=== PATIENT | male | born 1965 | race African-American/Black ===

== ENCOUNTER 2024-10-03 09:21 | Observation (INO) ==
[2024-10-03] MEDS: DUONEB NEB STA (10:33)
[2024-10-03] MEDS: SOLU-MEDROL 125 MG IVP ONE (10:36)
[2024-10-03] MEDS: LEVAQUIN 500 MG/100 ML D5W 500 MG/100 ML BAG IV ONE (10:36)
[2024-10-03 10:38] LABS: BASOPHILS % (AUTO) 0.2 % (0.0-3.0); HEMATOCRIT 45.5 % (42.0-52.0); HEMOGLOBIN 14.7 g/dl (14.0-18.0); IMMATURE GRANULOCYTE % (AUTO) 0.1 % (0.0-5.0); LYMPHOCYTES # (AUTO) 1.3 K/uL (0.60-3.4); LYMPHOCYTES % (AUTO) 15.7 (10.0-50.0); MEAN CORPUSCULAR HEMOGLOBIN 29.6 pg (27.0-31.0); MEAN CORPUSCULAR HGB CONC 32.3 (31.8-35.4); MEAN CORPUSCULAR VOLUME 91.7 fl (80.0-94.0); MONOCYTES # (AUTO) 1.5 K/uL (0.4-2.0); MONOCYTES % (AUTO) 18.1 (0-10); NEUTROPHILS # (AUTO) 5.3 K/ul (2.0-6.9); NEUTROPHILS % (AUTO) 65.9 % (42.2-75.2); PLATELET COUNT 179 10^3/uL (140-440); RDW COEFFICIENT OF VARIATION 12.7 % (11.6-14.8); RED BLOOD COUNT 4.96 10^6/ul (4.70-6.10); WHITE BLOOD COUNT 8.08 K/ul (4.2-10.2)
[2024-10-03 10:45] LABS: ALANINE AMINOTRANSFERASE 17.8 U/L (0-50); ALBUMIN 3.86 g/dL (3.5-5.0); ALKALINE PHOSPHATASE 64.5 U/L (38-126); BILIRUBIN,TOTAL 1.02 mg/dL (0.2-1.3); BLOOD UREA NITROGEN 35.3 mg/dL (9-20); CALCIUM 8.16 mg/dL (8.4-10.2); CARBON DIOXIDE 35.1 mmol/L (22-30.0); CHLORIDE 84.4 mmol/L (98-107); CREATININE 1.22 mg/dL (0.60-1.10); GLUCOSE 116.9 mg/dL (74-106); POTASSIUM 3.31 mmol/L (3.5-5.1); SODIUM 126.6 mmol/L (134.5-145)
--- NOTE | 2024-10-03 10:48 | DI ---
EXAM: CHEST RADIOGRAPH TECHNIQUE: Single frontal chest radiograph. HISTORY: Shortness of breath. COMPARISON: Chest single view 09/28/2024 FINDINGS: Cardiac silhouette, mediastinal size and pulmonary vasculature are normal. The aortic arch calcified plaque and tortuous descending thoracic aorta are unchanged. Bilateral well expanded lungs are clear. No infiltrates or acute process is seen. There is no pneumothorax. IMPRESSION: No acute cardiopulmonary process. No change since the previous study.
[2024-10-03 10:57] LABS: TROPONIN I 0.033 ng/ml (0.0000-0.120)
--- NOTE | 2024-10-03 10:59 | ED.PDOC ---
General ED Provider: Dr. DEANGELO BUTSOS MD Chief Complaint: Shortness of Air Stated Complaint: 59 years old male with history of COPD coming to the emergency room for shortness of breath. Patient was seen here 5 days ago for the same problem treated with steroids and discharged home with prednisone and nebulizer treatment patient reports that his medication has not been helping and has been getting progressively worse so he came back to the emergency room. He denies any chest pain, nausea, vomiting, headache, changes in bowel or urine. Time Seen by Provider: 10/03/24 09:35 Information Source: Patient Primary Care Provider: CANDACE RENDON MD Nursing and Triage Documentation Reviewed and Agree: Yes What is Opioid Naive?: *Opioid Naive implies the patient is not already taking opioids or not chronically receiving opioids on a daily basis. *PRN dosing is not "usually" associated with tolerance. *Patients are at higher risk of over-sedation and aspiration. What is Opioid Tolerant?: *Opioid Tolerance implies less than the expected response to an opioid. *Acquired tolerance is defined by the patient taking 60mg of oral morphine daily (or equianalgesic dose of another opioid) for 1 week or more. *Often associated with chronic pain. *May take more than usual dose to achieve desired pain control. Review of Systems Review Of Systems Constitutional: Reports No symptoms All Other Systems: Reviewed and Negative [facility] Medical History Hypertension I10 - Essential (primary) hypertension (ICD-10) COPD (chronic obstructive pulmonary disease) J44.9 - Chronic obstructive pulmonary disease, unspecified (ICD-10) Family History BROTHER , Throat Cancer COPD (chronic obstructive pulmonary disease) Cancer Mother Diabetes Stroke Social History Smoking and tobacco status: Current every day smoker Tobacco type: cigarettes Smoking cigarettes per day: 2 Quit status: considering quitting Second hand smoke exposure: No Smoking risk assessment performed: No Alcohol intake: current Alcohol intake frequency: a few times a month Counseling given: No Counseling provided: none Details: 1 pint a week Substance use type: marijuana Counseling given: No Counseling provided: none Marital status: S SINGLE Lives independently: Yes Number of children: 0 service: No Current occupational status: unemployed Pets and animals: No History of recent travel: No Sexually active: Yes Do you think of yourself as: straight/heterosexual Current gender identity: male Seatbelt use: always Helmet use: No Drives intoxicated or rides with 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 Water heater temperature set < 120 degrees: Yes Working smoke detector in home: Yes Fire extinguisher in home: Yes Carbon monoxide detector in home: No Firearms in home: No Physical Exam Physical Exam Appearance: Reports Ill-appearing, No pain distress and Thin Ill-appearing: Mild Respiratory: Reports Breath sounds diminished and Wheezes (bilaterally) Cardiovascular: Reports RRR, Pulses normal, No rub, No murmur and Irregular rhythm GI/: Reports Soft, Nontender, No masses, Bowel sounds normal and No Organomegaly Musculoskeletal: Reports Normal strength, ROM intact and No edema Skin: Reports Warm and Normal color Neurological: Reports Sensation intact, Cranial nerves intact, Alert and Oriented Psychiatric: Reports Affect appropriate Course Course 10/03/24 10:29 10/03/24 10:29 Orders, Labs, Meds: Lab Review 10/03/24 10:29 WBC 8.08 RBC 4.96 Hgb 14.7 Hct 45.5 MCV 91.7 MCH 29.6 MCHC 32.3 RDW Coeff of Laura 12.7 Plt Count 179 Immature Gran % (Auto) 0.1 Neut % (Auto) 65.9 Lymph % (Auto) 15.7 [place] % (Auto) 18.1 H Eos % (Auto) 0.0 Baso % (Auto) 0.2 Neut # (Auto) 5.3 Lymph # (Auto) 1.3 [place] # (Auto) 1.5 Eos # (Auto) 0.0 Baso # (Auto) 0.0 Immature Gran # (Auto) 0.0 Sodium 126.6 L Potassium 3.31 L Chloride 84.4 L Carbon Dioxide 35.1 H Anion Gap 10.41 BUN 35.3 H Creatinine 1.22 H Estimated GFR (MDRD) 74.00 BUN/Creatinine Ratio 28.93 Glucose 116.9 H Calcium 8.16 L Total Bilirubin 1.02 AST 29.0 ALT 17.8 Alkaline Phosphatase 64.5 Troponin I 0.033 Total Protein 7.00 Albumin 3.86 Globulin 3.14 Albumin/Globulin Ratio 1.22 Orders Category Date Time Status NEBULIZER TREATMENT Stat CARDIO 10/03/24 09:37 Completed CBC W/ AUTO DIFF Stat LAB 10/03/24 10:29 Completed CMP [COMPREHENSIVE METABOLIC PANEL] Stat LAB 10/03/24 10:29 Completed TROPONIN I Stat LAB 10/03/24 10:29 Completed Ipratropium/Albuterol Neb [Duoneb] Meds 10/03/24 09:35 Discontinued 3 ml NEB ONCE STA Levofloxacin/D5w [Levaquin 500 mg/100 ml D5w] Meds 10/03/24 09:35 Discontinued 500 mg in 100 ml IV ONCE Methylprednisolone Sod Succ/Pf [Solu-Medrol 125 mg] Meds 10/03/24 09:35 Discontinued 125 mg IVP ONCE ONE Sodium Chloride 0.9% [Sodium Chloride] 1,000 ml Meds 10/03/24 10:52 Active IV BOLUS CXR [CHEST, 1V AP ONLY] Stat RADS 10/03/24 09:35 Completed Medications Generic Name Dose Route Start Last Admin Trade Name Freq PRN Reason Stop Dose Admin Sodium Chloride 1,000 mls @ 1,000 mls/hr 10/03/24 10:52 Sodium Chloride IV 10/03/24 11:51 BOLUS ONE Discontinued Medications Generic Name Dose Route Start Last Admin Trade Name Freq PRN Reason Stop Dose Admin Albuterol/Ipratropium 3 ml 10/03/24 09:35 10/03/24 10:33 Ipratropium/Albuterol Vial.Neb NEB 10/03/24 09:36 3 ml ONCE STA Administration Levofloxacin/Dextrose 500 mg in 100 mls @ 100 mls/hr 10/03/24 09:35 10/03/24 10:36 Levaquin 500 Mg/100 Ml D5w IV 10/03/24 10:34 100 mls/hr ONCE ONE Administration Methylprednisolone Sodium Succinate 125 mg 10/03/24 09:35 10/03/24 10:36 Methylprednisolone Sod Succ/Pf 125 Mg/2 Ml Vial IVP 10/03/24 09:36 125 mg ONCE ONE Administration Vital Signs: Temp Pulse Resp BP Pulse Ox O2 Flow Rate 10/03/24 10:14 95 18 115/77 98 2 10/03/24 09:36 98.4 F 99 18 112/80 89 L Patient with COPD exacerbation no signs of CHF patient is actually dehydrated. Recent ER visit discharged home with oral medication but patient failed outpatient treatment. Workup showing hyponatremia sodium 126 and some BRAD, chest x-ray negative for pneumonia as per radiology interpretation. Patient will need to be admitted under observation for further treatment I called the hospitalist on-call Sherri discussed the patient case with her and she accepted the patient to be admitted under her services. Discharge Plan Discharge Patient Disposition: PLACED OBSERVATION Discharge Problem: Acute exacerbation of chronic obstructive pulmonary disease, Acute hyponatremia Prescriptions: No Action fluticasone propion-salmeterol [Wixela Inhub] 250-50 mcg/dose blister with device 1 inh inhalation BID Qty: 60 1RF lisinopril 40 mg tablet 40 mg PO QDAY Qty: 30 5RF tiotropium bromide [Spiriva with HandiHaler] 18 mcg capsule, w/inhalation device 1 cap inhalation QDAY Qty: 60 1RF Rx Instructions: puncture 1 cap using device; one dose = 2 inhalations (STOP TRELEGY and YUPELRI NOT COVERED) metoprolol succinate 50 mg tablet extended release 24 hr 50 mg PO QDAY Qty: 30 5RF potassium chloride 20 mEq tablet extended release 20 meq PO BIDWM2 Qty: 60 0RF albuterol sulfate 90 mcg/actuation HFA aerosol inhaler 2 puff inhalation Q6H PRN (Reason: shortness of breath or wheezing) Qty: 6.7 0RF albuterol sulfate 2.5 mg /3 mL (0.083 %) solution for nebulization 2.5 mg inhalation Q4-6H PRN (Reason: shortness of breath or wheezing) Qty: 90 0RF (DME) nebulizer and compressor Device See Rx Instructions .ROUTE Qty: 1 0RF Rx Instructions: As directed (DME) Aerochamber MV Spacer See Rx Instructions .ROUTE Qty: 10 0RF Rx Instructions: As directed prednisone 50 mg tablet 50 mg PO DAILY Qty: 7 0RF amlodipine 10 mg tablet 10 mg PO DAILY Qty: 30 0RF lisinopril-hydrochlorothiazide [Zestoretic] 20-25 mg tablet 1 tab PO DAILY Qty: 30 0RF amlodipine 10 mg tablet 10 mg PO QDAY Qty: 30 1RF Rx Instructions: Dose increase from 5mg daily to 10mg daily 07/25/23. spironolactone 25 mg tablet 25 mg PO QDAY Qty: 30 1RF Did you review [place] [employer] OPERATOR for ALL controlled substances?: Not Applicable ED Provider: DEANGELO BUSTOS Condition: Stable
[2024-10-03 11:40] LABS: SARS COV-2 RNA RAPID NAAT NEGATIVE (NEGATIVE)
[2024-10-03] MEDS: SODIUM CHLORIDE 1,000 ML IV ONE (12:24)
[2024-10-03 12:56] VITALS: BMI 21.4
[2024-10-03] MEDS ORDERED: TYLENOL PO PRN (13:16)
--- NOTE | 2024-10-03 15:09 | PCM ---
Date of Service Date Seen by Provider: 10/03/24 Time Seen by Provider: 14:00 Admit Day/Time Admission Date: 10/03/24 Admission Time: 13:33 Reason for Admission Chief Complaint: COPD EXACERBATION Hospital Provider Hospital Provider: IDA CRABTREE [place]-C[place] [facility] [place] Primary Care Physician: CANDACE RENDON MD History of Present Illness History of Present Illness: Patient is a 59 year old male who presents to ER with worsening COPD symptoms. Patient was seen in the ER recently and prescribed steroids. He states he's been taking them without relief. He continues to have cough and sob, worse with exertion. He quit smoking 3 weeks ago due to worsening symptoms as well. In ER he was noted to be 88-89% on RA. He was placed on 2L and while trying to wean him back down he desaturated to 89% again. He was given solumedrol and levaquin. Will admit to med surg. Patient has been living with his niece lately. Niece is interested in penitentiary placement. The patient is agreeable. Case Discussed With Case Discussed With: Patient's case was discussed with the ER Physicians, Dr. Esqueda. [facility] Medical History Arthritis M19.90 - Unspecified osteoarthritis, unspecified site (ICD-10) Hypertension I10 - Essential (primary) hypertension (ICD-10) COPD (chronic obstructive pulmonary disease) J44.9 - Chronic obstructive pulmonary disease, unspecified (ICD-10) Family History BROTHER , Throat Cancer COPD (chronic obstructive pulmonary disease) Cancer Mother Diabetes Stroke Social History Smoking and tobacco status: Former smoker Quit status: quit date established Second hand smoke exposure: No Smoking risk assessment performed: No Alcohol intake: current Alcohol intake frequency: a few times a month Counseling given: No Counseling provided: none Details: 1 pint a week Substance use type: marijuana Counseling given: No Counseling provided: none Marital status: S SINGLE Lives independently: Yes Number of children: 0 service: No Current occupational status: unemployed Pets and animals: No History of recent travel: No Sexually active: Yes Do you think of yourself as: straight/heterosexual Current gender identity: male Seatbelt use: always Helmet use: No Drives intoxicated or rides with 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 Water heater temperature set < 120 degrees: Yes Working smoke detector in home: Yes Fire extinguisher in home: Yes Carbon monoxide detector in home: No Firearms in home: No Allergies Allergies Allergy/AdvReac Type Severity Reaction Status Date / Time No Known Allergies Allergy Verified 08/01/23 15:51 Current Medications Home Medications Acetaminophen (Acetaminophen 325 Mg Tablet) 650 mg PO Q4H PRN PRN Reason: Mild Pain Albuterol/Ipratropium (Ipratropium/Albuterol Vial.Neb) 3 ml NEB RTQ6H MICHAEL Amlodipine Besylate (Amlodipine Besylate 5 Mg Tablet) 10 mg PO DAILY MICHAEL Levofloxacin/Dextrose (Levaquin 750 Mg/150 Ml D5w) 750 mg in 150 mls @ 100 mls/hr IV DAILY MICHAEL Stop: 10/07/24 08:59 Sodium Chloride (Sodium Chloride) 1,000 mls @ 75 mls/hr IV .[id number] MICHAEL Methylprednisolone Sodium Succinate (Methylprednisolone Sod Succ/Pf 40 Mg/Ml Vial) 40 mg IVP Q8HR MICHAEL Non-Formulary Medication (Fluticasone Propion-Salmeterol [Wixela Inhub]) 1 inh IH BID MICHAEL Potassium Chloride (Potassium Chloride 20 Meq Tab) 40 meq PO ONCE ONE Stop: 10/03/24 15:01 fluticasone 250 mcg-salmeterol 50 mcg/dose blistr powdr for inhalation (Wixela Inhub) 1 inh inhalation BID #60 ea 06/14/23 [Rx Confirmed 10/03/24] lisinopril 40 mg tablet 40 mg PO QDAY #30 tabs 06/16/23 [Rx Confirmed 10/03/24] amlodipine 10 mg tablet 10 mg PO QDAY #30 tabs 07/25/23 [Rx Confirmed 10/03/24] spironolactone 25 mg tablet 25 mg PO QDAY #30 tabs 07/25/23 [Rx Confirmed ] tiotropium bromide 18 mcg capsule with inhalation device (Spiriva with HandiHaler) 1 cap inhalation QDAY #60 inhalations 09/01/23 [Rx Confirmed 10/03/24] metoprolol succinate 50 mg tablet,extended release 24 hr 50 mg PO QDAY #30 tabs 09/13/23 [Rx Confirmed 10/03/24] albuterol sulfate 90 mcg/actuation aerosol inhaler 2 puff inhalation Q6H PRN shortness of breath or wheezing #6.7 grams 10/23/23 [Rx Confirmed 10/03/24] potassium chloride 20 mEq tablet,extended release 20 meq PO BIDWM2 #60 tabs 10/23/23 [Rx Confirmed 10/03/24] albuterol sulfate 2.5 mg/3 mL (0.083 %) solution for nebulization 2.5 mg (3 mL) inhalation Q4-6H PRN shortness of breath or wheezing #90 mL 09/28/24 [Rx Confirmed 10/03/24] amlodipine 10 mg tablet 10 mg PO DAILY #30 tabs 09/28/24 [Rx Confirmed 10/03/24] inhalational spacing device (Aerochamber MV spacer) #10 ea 09/28/24 [Rx Confirmed 10/03/24] lisinopril 20 mg-hydrochlorothiazide 25 mg tablet (Zestoretic) 1 tab PO DAILY #30 tabs 09/28/24 [Rx Confirmed 10/03/24] nebulizer and compressor #1 ea 09/28/24 [Rx Confirmed 10/03/24] prednisone 50 mg tablet 50 mg PO DAILY #7 tabs 09/28/24 [Rx Confirmed 10/03/24] Opioid Naive vs. Tolerant Does Patient Take Opioids?: No Is Patient Opioid Naive?: Yes What is Opioid Naive?: *Opioid Naive implies the patient is not already taking opioids or not chronically receiving opioids on a daily basis. *PRN dosing is not "usually" associated with tolerance. *Patients are at higher risk of over-sedation and aspiration. Is Patient Opioid Tolerant?: No What is Opioid Tolerant?: *Opioid Tolerance implies less than the expected response to an opioid. *Acquired tolerance is defined by the patient taking 60mg of oral morphine daily (or equianalgesic dose of another opioid) for 1 week or more. *Often associated with chronic pain. *May take more than usual dose to achieve desired pain control. Review of Systems Constitutional: Reports Fatigue; Denies Fever Head: Reports Normocephalic and Atraumatic Throat: Reports Sore Throat Cardiovascular: Denies Chest pain, Chest Pressure or Edema Respiratory: Reports Cough and Shortness of air Gastrointestinal: Denies Nausea, Vomiting, Diarrhea, Abdominal pain or Melena Genitourinary: Denies Dysuria or Hematuria Dermatologic: Denies Rashes Neurological: Denies Headache, Dizziness or Syncope Physical examination Most Recent Vital Signs: Most Recent Vital Signs Temperature 98.7 F 10/03/24 12:42 Temperature Source Temporal Artery Scan 10/03/24 12:42 Temperature Source Infrared 10/03/24 09:36 Pulse Rate 92 10/03/24 12:42 Respiratory Rate 22 H 10/03/24 12:42 Blood Pressure 115/77 10/03/24 10:14 Blood Pressure Right Arm 108/82 10/03/24 12:42 Blood Pressure Position Supine 10/03/24 12:42 O2 Sat by Pulse Oximetry 97 10/03/24 12:42 Oxygen Delivery Method Nasal Cannula 10/03/24 14:00 Oxygen Flow Rate 2 10/03/24 12:42 Height 5 ft 7 in 10/03/24 12:42 Weight 62.2 kg 10/03/24 12:42 Appearance: Positive No Apparent Distress and Alert and Oriented x3 Skin: Negative Rashes HEENT: Positive Normocephalic; Negative Oral Mucous Moist Neck: Positive Supple and Midline Trachea Chest/Lungs: Positive Clear to Auscultation Bilaterally and Wheezes (insp wheezing dagoberto all hernandez, on 2L ); Negative Rales or Rhonci Heart: Positive RRR GI/: Positive Soft, Nontender, Bowel Sounds Normal and No Distention Extremities: Negative Edema Neurological: Positive Cranial Nerves Intact, Alert, Oriented and Muscle Strength 5/5 in Upper and Lower Extremities Bilaterally Psychiatric: Positive Oriented x4, Appropriate Mood, Appropriate Affect and Intact Memory Labs This Visit Labs This Visit: Labs This Visit 10/03/24 10/03/24 10:29 11:20 WBC 8.08 RBC 4.96 Hgb 14.7 Hct 45.5 MCV 91.7 MCH 29.6 MCHC 32.3 RDW Coeff of Laura 12.7 Plt Count 179 Immature Gran % (Auto) 0.1 Neut % (Auto) 65.9 Lymph % (Auto) 15.7 [place] % (Auto) 18.1 H Eos % (Auto) 0.0 Baso % (Auto) 0.2 Neut # (Auto) 5.3 Lymph # (Auto) 1.3 [place] # (Auto) 1.5 Eos # (Auto) 0.0 Baso # (Auto) 0.0 Immature Gran # (Auto) 0.0 Sodium 126.6 L Potassium 3.31 L Chloride 84.4 L Carbon Dioxide 35.1 H Anion Gap 10.41 BUN 35.3 H Creatinine 1.22 H Estimated GFR (MDRD) 74.00 BUN/Creatinine Ratio 28.93 Glucose 116.9 H Calcium 8.16 L Total Bilirubin 1.02 AST 29.0 ALT 17.8 Alkaline Phosphatase 64.5 Troponin I 0.033 Total Protein 7.00 Albumin 3.86 Globulin 3.14 Albumin/Globulin Ratio 1.22 SARS CoV-2 RNA Rapid CELENA Negative Imaging Imaging: EXAM: CHEST RADIOGRAPH TECHNIQUE: Single frontal chest radiograph. HISTORY: Shortness of breath. COMPARISON: Chest single view 09/28/2024 FINDINGS: Cardiac silhouette, mediastinal size and pulmonary vasculature are normal. The aortic arch calcified plaque and tortuous descending thoracic aorta are unchanged. Bilateral well expanded lungs are clear. No infiltrates or acute process is seen. There is no pneumothorax. IMPRESSION: No acute cardiopulmonary process. No change since the previous study. Review Statement Review Statement: I have independently reviewed and interpreted the labs/EKGs/imaging that were ordered by the ER provider. I have reviewed all outside records that are available currently in our EMR including imaging/notes/labs from previous visits. Plan Plan: 1. Acute hypoxic respiratory failure in setting of COPD exacerbation - abx, steroids, duonebs, wean O2 when able 2. Acute COPD exacerbation - plan as above 3. Hyponatremia, acute - NS ordered, received bolus in ER. Pt appears dry on exam. 4. BRAD, stage I - Fluids ordered. 5. Hypertension - Cont home meds. DVT Prophylaxis: Ambulation Time Spent: Greater than 80 minutes spent with patient, 50% of the time spent with this patient was devoted to counseling and coordination of care. [facility] minutes spent discussing advance care planning. Admit to: Obs Discussed Plan of Care with Dr. Nickolas Leon. Case management working on placement. Medications Medication Orders: Medications Ordered Category Date Time Status Acetaminophen [Tylenol] Meds 10/03/24 13:16 Active 650 mg PO Q4H PRN Amlodipine Besylate [Norvasc] Meds 10/04/24 09:00 Ordered 10 mg PO DAILY Ipratropium/Albuterol Neb [Duoneb] Meds 10/03/24 18:00 Active 3 ml NEB RTQ6H Levofloxacin/D5w [Levaquin 750 mg/150 ml D5w] Meds 10/04/24 09:00 Active 750 mg in 150 ml IV DAILY Methylprednisolone Sod Succ/Pf [Solu-Medrol 40 mg] Meds 10/03/24 21:00 Active 40 mg IVP Q8HR Potassium Chloride [K-Dur] Meds 10/03/24 15:00 Once 40 meq PO ONCE ONE Sodium Chloride 0.9% [Sodium Chloride] 1,000 ml Meds 10/03/24 15:00 Ordered IV 75 mls/hr fluticasone propion-salmeterol [Wixela Inhub] Meds 10/03/24 21:00 Ordered 1 inh IH BID
[2024-10-03] MEDS: SODIUM CHLORIDE 1,000 ML IV SCH (16:12)
[2024-10-03] MEDS: K-DUR PO ONE (16:12)
[2024-10-03] MEDS: DUONEB NEB SCH (17:55)
[2024-10-03] MEDS: SYMBICORT 160-4.5 MCG INHALER IH SCH (20:29)
[2024-10-03] MEDS: SOLU-MEDROL 40 MG IVP SCH (20:30)
[2024-10-04 05:47] LABS: BASOPHILS % (AUTO) 0.1 % (0.0-3.0); EOSINOPHILS # (AUTO) 0.1 K/ul (0.0-0.7); EOSINOPHILS % (AUTO) 1.1 % (0.0-7.0); HEMATOCRIT 42.1 % (42.0-52.0); HEMOGLOBIN 13.4 g/dl (14.0-18.0); IMMATURE GRANULOCYTE % (AUTO) 0.3 % (0.0-5.0); LYMPHOCYTES # (AUTO) 0.8 K/uL (0.60-3.4); LYMPHOCYTES % (AUTO) 10.9 (10.0-50.0); MEAN CORPUSCULAR HEMOGLOBIN 28.6 pg (27.0-31.0); MEAN CORPUSCULAR HGB CONC 31.8 (31.8-35.4); MONOCYTES # (AUTO) 0.7 K/uL (0.4-2.0); MONOCYTES % (AUTO) 9.5 (0-10); NEUTROPHILS # (AUTO) 5.7 K/ul (2.0-6.9); NEUTROPHILS % (AUTO) 78.1 % (42.2-75.2); PLATELET COUNT 193 10^3/uL (140-440); RDW COEFFICIENT OF VARIATION 12.5 % (11.6-14.8); RED BLOOD COUNT 4.68 10^6/ul (4.70-6.10); WHITE BLOOD COUNT 7.27 K/ul (4.2-10.2)
[2024-10-04 06:02] LABS: ALANINE AMINOTRANSFERASE 17.4 U/L (0-50); ALBUMIN 3.59 g/dL (3.5-5.0); ALKALINE PHOSPHATASE 57.5 U/L (38-126); ASPARTATE AMINO TRANSFERASE 27.6 U/L (17-59); BILIRUBIN,TOTAL 0.51 mg/dL (0.2-1.3); BLOOD UREA NITROGEN 26.4 mg/dL (9-20); CALCIUM 8.12 mg/dL (8.4-10.2); CARBON DIOXIDE 31.7 mmol/L (22-30.0); CHLORIDE 91.4 mmol/L (98-107); CREATININE 1.02 mg/dL (0.60-1.10); GLUCOSE 195.1 mg/dL (74-106); POTASSIUM 3.34 mmol/L (3.5-5.1); SODIUM 129.1 mmol/L (134.5-145); TOTAL PROTEIN 6.6 g/dL (6.3-8.2)
[2024-10-04] MEDS: NORVASC PO SCH (09:39)
[2024-10-04] MEDS: LEVAQUIN 750 MG/150 ML D5W 750 MG/150 ML BAG IV SCH (09:41)
[2024-10-04] MEDS: K-DUR PO ONE (10:43)
--- NOTE | 2024-10-04 12:41 | PCM.PROG ---
Date/Time Seen Date Seen by Provider: 10/04/24 Time Seen by Provider: 09:00 Provider Provider: ANGELA BURK, [facility] Chief Complaint Chief Complaint: COPD EXACERBATION Subjective Subjective: Feeling better today. Still requiring 2L of oxygen this am. Audible wheezing still at this time. Objective Appearance: Positive No Apparent Distress and Alert and Oriented x3 Chest/Lungs: Positive Symmetrical With Equal Breath Sounds and Wheezes (diminished) Heart: Positive RRR and Pulses Normal GI/: Positive Soft, Nontender, Bowel Sounds Normal and No Distention Musculoskeletal: Positive Not Examined Neurological: Positive Sensation Intact, Motor intact, Alert and Oriented Vital Signs Vital Signs: Vital Signs: Last 24 Hours 10/03/24 12:42 10/03/24 12:42 10/03/24 13:00 Temperature 98.7 F Temperature Source Temporal Artery Scan Pulse Rate 92 Respiratory Rate 22 H 22 H Blood Pressure Blood Pressure Mean Blood Pressure Right Arm 108/82 Blood Pressure Location Blood Pressure Position Supine O2 Sat by Pulse Oximetry 97 Oxygen Delivery Method Nasal Cannula Nasal Cannula Nasal Cannula Oxygen Flow Rate 2 2 Height 5 ft 7 in Weight 62.2 kg Telemetry Type Telemetry Monitoring Telemetry Heart Rate Telemetry SPO2 EKG NV Interval EKG QRS Interval Telemetry Strip Reading 10/03/24 14:00 10/03/24 14:00 10/03/24 14:00 Temperature 99.1 F Temperature Source Temporal Artery Scan Pulse Rate 92 Respiratory Rate 18 Blood Pressure 108/70 Blood Pressure Mean 82 Blood Pressure Right Arm Blood Pressure Location Right Arm Blood Pressure Position O2 Sat by Pulse Oximetry 96 Oxygen Delivery Method Nasal Cannula Nasal Cannula Nasal Cannula Oxygen Flow Rate 2 2 Height Weight Telemetry Type Telemetry Monitoring Telemetry Heart Rate Telemetry SPO2 EKG NV Interval EKG QRS Interval Telemetry Strip Reading 10/03/24 15:00 10/03/24 15:03 10/03/24 16:00 Temperature Temperature Source Pulse Rate Respiratory Rate Blood Pressure Blood Pressure Mean Blood Pressure Right Arm Blood Pressure Location Blood Pressure Position O2 Sat by Pulse Oximetry Oxygen Delivery Method Nasal Cannula Nasal Cannula Oxygen Flow Rate Height Weight Telemetry Type Remote Telemetry Telemetry Monitoring Started Telemetry Heart Rate 92 Telemetry SPO2 EKG NV Interval 0.14 EKG QRS Interval 0.07 Telemetry Strip Reading SR 10/03/24 16:49 10/03/24 17:46 10/03/24 17:55 Temperature 97.9 F Temperature Source Temporal Artery Scan Pulse Rate 83 Respiratory Rate 20 Blood Pressure 116/63 Blood Pressure Mean 80 Blood Pressure Right Arm Blood Pressure Location Right Arm Blood Pressure Position Supine O2 Sat by Pulse Oximetry 98 Oxygen Delivery Method Nasal Cannula Nasal Cannula Nasal Cannula Oxygen Flow Rate 2 Height Weight Telemetry Type Telemetry Monitoring Telemetry Heart Rate Telemetry SPO2 EKG NV Interval EKG QRS Interval Telemetry Strip Reading 10/03/24 19:00 10/03/24 19:00 10/03/24 19:15 Temperature Temperature Source Pulse Rate Respiratory Rate 20 Blood Pressure Blood Pressure Mean Blood Pressure Right Arm Blood Pressure Location Blood Pressure Position O2 Sat by Pulse Oximetry Oxygen Delivery Method Nasal Cannula Nasal Cannula Oxygen Flow Rate 2 Height Weight Telemetry Type Remote Telemetry Telemetry Monitoring Continues Telemetry Heart Rate 83 Telemetry SPO2 99 EKG NV Interval 0.20 EKG QRS Interval 0.06 Telemetry Strip Reading sinus rhythm 10/03/24 19:58 10/03/24 20:00 10/03/24 20:54 Temperature 98.7 F Temperature Source Temporal Artery Scan Pulse Rate 80 Respiratory Rate 19 Blood Pressure 126/82 Blood Pressure Mean 96 Blood Pressure Right Arm Blood Pressure Location Left Arm Blood Pressure Position Supine O2 Sat by Pulse Oximetry 95 97 Oxygen Delivery Method Nasal Cannula Nasal Cannula Nasal Cannula Oxygen Flow Rate 2 2 Height Weight Telemetry Type Telemetry Monitoring Telemetry Heart Rate Telemetry SPO2 EKG NV Interval EKG QRS Interval Telemetry Strip Reading 10/03/24 21:00 10/03/24 21:38 10/03/24 23:00 Temperature Temperature Source Pulse Rate Respiratory Rate Blood Pressure Blood Pressure Mean Blood Pressure Right Arm Blood Pressure Location Blood Pressure Position O2 Sat by Pulse Oximetry Oxygen Delivery Method Nasal Cannula Nasal Cannula Nasal Cannula Oxygen Flow Rate Height Weight Telemetry Type Telemetry Monitoring Telemetry Heart Rate Telemetry SPO2 EKG NV Interval EKG QRS Interval Telemetry Strip Reading 10/03/24 23:56 10/04/24 00:27 10/04/24 01:00 Temperature Temperature Source Pulse Rate Respiratory Rate Blood Pressure Blood Pressure Mean Blood Pressure Right Arm Blood Pressure Location Blood Pressure Position O2 Sat by Pulse Oximetry Oxygen Delivery Method Nasal Cannula Nasal Cannula Oxygen Flow Rate Height Weight Telemetry Type Remote Telemetry Telemetry Monitoring Continues Telemetry Heart Rate 74 Telemetry SPO2 95 EKG NV Interval 0.17 EKG QRS Interval 0.07 Telemetry Strip Reading sinus rhythm 10/04/24 01:59 10/04/24 02:00 10/04/24 03:00 Temperature 98.9 F Temperature Source Temporal Artery Scan Pulse Rate 75 Respiratory Rate 18 Blood Pressure 121/81 Blood Pressure Mean 94 Blood Pressure Right Arm Blood Pressure Location Left Arm Blood Pressure Position Supine O2 Sat by Pulse Oximetry 97 Oxygen Delivery Method Nasal Cannula Nasal Cannula Nasal Cannula Oxygen Flow Rate 2 Height Weight Telemetry Type Telemetry Monitoring Telemetry Heart Rate Telemetry SPO2 EKG NV Interval EKG QRS Interval Telemetry Strip Reading 10/04/24 04:00 10/04/24 05:00 10/04/24 05:04 Temperature 97.7 F Temperature Source Temporal Artery Scan Pulse Rate 71 Respiratory Rate 17 Blood Pressure 123/71 Blood Pressure Mean 88 Blood Pressure Right Arm Blood Pressure Location Right Arm Blood Pressure Position Supine O2 Sat by Pulse Oximetry 95 Oxygen Delivery Method Nasal Cannula Nasal Cannula Nasal Cannula Oxygen Flow Rate 2 Height Weight Telemetry Type Telemetry Monitoring Telemetry Heart Rate Telemetry SPO2 EKG NV Interval EKG QRS Interval Telemetry Strip Reading 10/04/24 05:05 10/04/24 06:00 10/04/24 07:00 Temperature Temperature Source Pulse Rate Respiratory Rate Blood Pressure Blood Pressure Mean Blood Pressure Right Arm Blood Pressure Location Blood Pressure Position O2 Sat by Pulse Oximetry Oxygen Delivery Method Nasal Cannula Nasal Cannula Nasal Cannula Oxygen Flow Rate 2 Height Weight Telemetry Type Telemetry Monitoring Telemetry Heart Rate Telemetry SPO2 EKG NV Interval EKG QRS Interval Telemetry Strip Reading 10/04/24 07:00 10/04/24 08:00 10/04/24 08:00 Temperature Temperature Source Pulse Rate Respiratory Rate 22 H Blood Pressure Blood Pressure Mean Blood Pressure Right Arm Blood Pressure Location Blood Pressure Position O2 Sat by Pulse Oximetry Oxygen Delivery Method Nasal Cannula Nasal Cannula Oxygen Flow Rate 2 Height Weight Telemetry Type Remote Telemetry Telemetry Monitoring Continues Telemetry Heart Rate 87 Telemetry SPO2 93 EKG NV Interval 0.18 EKG QRS Interval 0.09 Telemetry Strip Reading NSR 10/04/24 09:00 10/04/24 10:00 10/04/24 10:00 Temperature 98.0 F Temperature Source Temporal Artery Scan Pulse Rate 72 Respiratory Rate 16 Blood Pressure 144/86 H Blood Pressure Mean 105 Blood Pressure Right Arm Blood Pressure Location Right Arm Blood Pressure Position Supine O2 Sat by Pulse Oximetry 97 Oxygen Delivery Method Nasal Cannula Nasal Cannula Nasal Cannula Oxygen Flow Rate 1 Height Weight Telemetry Type Telemetry Monitoring Telemetry Heart Rate Telemetry SPO2 EKG NV Interval EKG QRS Interval Telemetry Strip Reading 10/04/24 10:00 10/04/24 11:00 10/04/24 11:10 Temperature Temperature Source Pulse Rate Respiratory Rate Blood Pressure Blood Pressure Mean Blood Pressure Right Arm Blood Pressure Location Blood Pressure Position O2 Sat by Pulse Oximetry 98 93 L Oxygen Delivery Method Nasal Cannula Nasal Cannula Room Air Oxygen Flow Rate 1 Height Weight Telemetry Type Telemetry Monitoring Telemetry Heart Rate Telemetry SPO2 EKG NV Interval EKG QRS Interval Telemetry Strip Reading 10/04/24 12:00 Temperature Temperature Source Pulse Rate Respiratory Rate Blood Pressure Blood Pressure Mean Blood Pressure Right Arm Blood Pressure Location Blood Pressure Position O2 Sat by Pulse Oximetry Oxygen Delivery Method Room Air Oxygen Flow Rate Height Weight Telemetry Type Telemetry Monitoring Telemetry Heart Rate Telemetry SPO2 EKG NV Interval EKG QRS Interval Telemetry Strip Reading Lab Results Lab Results: Lab Results: Last 24 Hours 10/04/24 05:25 WBC 7.27 RBC 4.68 L Hgb 13.4 L Hct 42.1 MCV 90.0 MCH 28.6 MCHC 31.8 RDW Coeff of Laura 12.5 Plt Count 193 Immature Gran % (Auto) 0.3 Neut % (Auto) 78.1 H Lymph % (Auto) 10.9 [place] % (Auto) 9.5 Eos % (Auto) 1.1 Baso % (Auto) 0.1 Neut # (Auto) 5.7 Lymph # (Auto) 0.8 [place] # (Auto) 0.7 Eos # (Auto) 0.1 Baso # (Auto) 0.0 Immature Gran # (Auto) 0.0 Sodium 129.1 L Potassium 3.34 L Chloride 91.4 L Carbon Dioxide 31.7 H Anion Gap 9.34 BUN 26.4 H Creatinine 1.02 Estimated GFR (MDRD) 91.00 BUN/Creatinine Ratio 25.88 Glucose 195.1 H D Calcium 8.12 L Total Bilirubin 0.51 AST 27.6 ALT 17.4 Alkaline Phosphatase 57.5 Total Protein 6.60 Albumin 3.59 Globulin 3.01 Albumin/Globulin Ratio 1.19 Additional Comments Additional Comments: I have independently reviewed and interpreted the labs/EKGs/imaging ordered during this hospital stay. I have reviewed outside records that are available in our EMR that pertain to medical stay including imaging/notes/labs from previous visits. Active Medications Active Medications: Medications Generic Name Dose Route Start Last Admin Trade Name Tank PRN Reason Stop Dose Admin Acetaminophen 650 mg 10/03/24 13:16 Acetaminophen 325 Mg Tablet PO Q4H PRN Mild Pain Albuterol/Ipratropium 3 ml 10/03/24 18:00 10/04/24 11:09 Ipratropium/Albuterol Vial.Neb NEB 3 ml RTQ6H MICHAEL Administration Amlodipine Besylate 10 mg 10/04/24 09:00 10/04/24 09:39 Amlodipine Besylate 5 Mg Tablet PO 10 mg DAILY MICHAEL Administration Budesonide/Formoterol Fumarate 2 puff 10/03/24 21:00 10/04/24 09:38 Budesonide/Formoterol Fumarate 160/4.5 Mcg Inhaler IH 2 puff BID MICHAEL Administration Levofloxacin/Dextrose 750 mg in 150 mls @ 100 mls/hr 10/04/24 09:00 10/04/24 09:41 Levaquin 750 Mg/150 Ml D5w IV 10/07/24 08:59 100 mls/hr DAILY MICHAEL Administration Sodium Chloride 1,000 mls @ 75 mls/hr 10/03/24 15:00 10/04/24 04:42 Sodium Chloride IV 75 mls/hr .[id number] MICHAEL Administration Methylprednisolone Sodium Succinate 40 mg 10/03/24 21:00 10/04/24 04:44 Methylprednisolone Sod Succ/Pf 40 Mg/Ml Vial IVP 40 mg Q8HR MICHAEL Administration Plan Plan: 1. Acute hypoxic respiratory failure in setting of COPD exacerbation - abx, steroids, duonebs, wean O2 when able 2. Acute COPD exacerbation - plan as above 3. Hyponatremia, acute - NS ordered, received bolus in ER. Pt appears dry on exam. 4. BRAD, stage I - Improving, Fluids ordered. 5. Hypertension - Cont home meds. DVT Prophylaxis: Ambulation Review Statement Review Statement: I have personally discussed and reviewed the patient's visit/currently l abs/imaging/decision making with Dr. Leon, my supervising attending. Greater that 50 minutes spent with patient, 50% of the time spent with this patient was devoted to counseling and coordination of care.
[2024-10-04] MEDS: CHLORASEPTIC SPRAY MM PRN (17:04)
[2024-10-05 05:46] LABS: BASOPHILS % (AUTO) 0.1 % (0.0-3.0); EOSINOPHILS % (AUTO) 0.4 % (0.0-7.0); HEMATOCRIT 41.9 % (42.0-52.0); IMMATURE GRANULOCYTE # (AUTO) 0.1 (0.0-1.0); IMMATURE GRANULOCYTE % (AUTO) 0.4 % (0.0-5.0); LYMPHOCYTES # (AUTO) 0.9 K/uL (0.60-3.4); LYMPHOCYTES % (AUTO) 7.8 (10.0-50.0); MEAN CORPUSCULAR HEMOGLOBIN 28.7 pg (27.0-31.0); MEAN CORPUSCULAR VOLUME 92.5 fl (80.0-94.0); MONOCYTES # (AUTO) 1.2 K/uL (0.4-2.0); MONOCYTES % (AUTO) 10.7 (0-10); NEUTROPHILS % (AUTO) 80.6 % (42.2-75.2); PLATELET COUNT 200 10^3/uL (140-440); RDW COEFFICIENT OF VARIATION 12.8 % (11.6-14.8); RED BLOOD COUNT 4.53 10^6/ul (4.70-6.10); WHITE BLOOD COUNT 11.15 K/ul (4.2-10.2)
[2024-10-05 06:01] LABS: ALANINE AMINOTRANSFERASE 17.9 U/L (0-50); ALBUMIN 3.73 g/dL (3.5-5.0); ALKALINE PHOSPHATASE 75.7 U/L (38-126); ASPARTATE AMINO TRANSFERASE 27.7 U/L (17-59); BILIRUBIN,TOTAL 0.35 mg/dL (0.2-1.3); BLOOD UREA NITROGEN 13.5 mg/dL (9-20); CALCIUM 8.34 mg/dL (8.4-10.2); CARBON DIOXIDE 32.5 mmol/L (22-30.0); CHLORIDE 97.4 mmol/L (98-107); CREATININE 0.8 mg/dL (0.60-1.10); GLUCOSE 132.4 mg/dL (74-106); POTASSIUM 3.51 mmol/L (3.5-5.1); SODIUM 135.7 mmol/L (134.5-145); TOTAL PROTEIN 6.95 g/dL (6.3-8.2)
--- NOTE | 2024-10-05 10:02 | PCM.PROG ---
Date/Time Seen Date Seen by Provider: 10/05/24 Time Seen by Provider: 09:15 Provider Provider: ANGELA BURK, [facility] Chief Complaint Chief Complaint: COPD EXACERBATION Subjective Subjective: Attempted to wean off oxygen yesterday. Dropped to 83% on RA around 1500. Placed back on 1L and sat has remained stable. Will attempt to wean again today. coughing up yellow sputum, c/o sore throat Objective Appearance: Positive No Apparent Distress, Alert and Oriented x3 and Ill-A ppearing Chest/Lungs: Positive Symmetrical With Equal Breath Sounds, Wheezes (mild expiratory) and Good Air Movement all 4 Lung [place] Heart: Positive RRR and Pulses Normal GI/: Positive Soft, Nontender, Bowel Sounds Normal and No Distention Musculoskeletal: Positive Not Examined Neurological: Positive Sensation Intact, Motor intact, Alert, Oriented and Other (generalized weakness) Vital Signs Vital Signs: Vital Signs: Last 24 Hours 10/04/24 11:00 10/04/24 11:10 10/04/24 12:00 Temperature Temperature Source Pulse Rate Pulse Rate [Apical] Respiratory Rate Blood Pressure Blood Pressure Mean Blood Pressure Location Blood Pressure Position O2 Sat by Pulse Oximetry 93 L Oxygen Delivery Method Nasal Cannula Room Air Room Air Oxygen Flow Rate Telemetry Type Telemetry Monitoring Telemetry Heart Rate Telemetry SPO2 EKG DE Interval EKG QRS Interval Telemetry Strip Reading 10/04/24 13:00 10/04/24 13:00 10/04/24 14:00 Temperature Temperature Source Pulse Rate Pulse Rate [Apical] Respiratory Rate Blood Pressure Blood Pressure Mean Blood Pressure Location Blood Pressure Position O2 Sat by Pulse Oximetry 94 L Oxygen Delivery Method Room Air Room Air Oxygen Flow Rate Telemetry Type Remote Telemetry Telemetry Monitoring Continues Telemetry Heart Rate 88 Telemetry SPO2 91 L EKG DE Interval 0.22 H EKG QRS Interval 0.09 Telemetry Strip Reading SR with 1st degree AV Block 10/04/24 14:00 10/04/24 14:15 10/04/24 15:00 Temperature 98.4 F Temperature Source Temporal Artery Scan Pulse Rate 82 Pulse Rate [Apical] Respiratory Rate 20 Blood Pressure 128/85 Blood Pressure Mean 99 Blood Pressure Location Right Arm Blood Pressure Position Supine O2 Sat by Pulse Oximetry 98 Oxygen Delivery Method Nasal Cannula Nasal Cannula Nasal Cannula Oxygen Flow Rate 1 Telemetry Type Telemetry Monitoring Telemetry Heart Rate Telemetry SPO2 EKG DE Interval EKG QRS Interval Telemetry Strip Reading 10/04/24 16:00 10/04/24 17:00 10/04/24 18:00 Temperature 98.7 F Temperature Source Temporal Artery Scan Pulse Rate 94 Pulse Rate [Apical] Respiratory Rate 22 H Blood Pressure 131/86 Blood Pressure Mean 101 Blood Pressure Location Right Arm Blood Pressure Position Sitting O2 Sat by Pulse Oximetry 94 L Oxygen Delivery Method Nasal Cannula Nasal Cannula Nasal Cannula Oxygen Flow Rate 1 Telemetry Type Telemetry Monitoring Telemetry Heart Rate Telemetry SPO2 EKG DE Interval EKG QRS Interval Telemetry Strip Reading 10/04/24 18:00 10/04/24 19:00 10/04/24 19:00 Temperature Temperature Source Pulse Rate Pulse Rate [Apical] Respiratory Rate Blood Pressure Blood Pressure Mean Blood Pressure Location Blood Pressure Position O2 Sat by Pulse Oximetry Oxygen Delivery Method Nasal Cannula Nasal Cannula Oxygen Flow Rate Telemetry Type Remote Telemetry Telemetry Monitoring Continues Telemetry Heart Rate 98 Telemetry SPO2 92 L EKG DE Interval 0.16 EKG QRS Interval 0.08 Telemetry Strip Reading SR 10/04/24 19:28 10/04/24 20:00 10/04/24 20:00 Temperature Temperature Source Pulse Rate Pulse Rate [Apical] Respiratory Rate Blood Pressure Blood Pressure Mean Blood Pressure Location Blood Pressure Position O2 Sat by Pulse Oximetry Oxygen Delivery Method Nasal Cannula Nasal Cannula Nasal Cannula Oxygen Flow Rate 1 1 Telemetry Type Telemetry Monitoring Telemetry Heart Rate Telemetry SPO2 EKG DE Interval EKG QRS Interval Telemetry Strip Reading 10/04/24 21:00 10/04/24 21:18 10/04/24 22:00 Temperature 98.3 F Temperature Source Temporal Artery Scan Pulse Rate 88 Pulse Rate [Apical] Respiratory Rate 20 Blood Pressure 122/76 Blood Pressure Mean 91 Blood Pressure Location Right Arm Blood Pressure Position Supine O2 Sat by Pulse Oximetry 93 L Oxygen Delivery Method Nasal Cannula Nasal Cannula Nasal Cannula Oxygen Flow Rate 1 Telemetry Type Telemetry Monitoring Telemetry Heart Rate Telemetry SPO2 EKG DE Interval EKG QRS Interval Telemetry Strip Reading 10/04/24 23:00 10/05/24 00:00 10/05/24 01:00 Temperature Temperature Source Pulse Rate Pulse Rate [Apical] Respiratory Rate Blood Pressure Blood Pressure Mean Blood Pressure Location Blood Pressure Position O2 Sat by Pulse Oximetry Oxygen Delivery Method Nasal Cannula Nasal Cannula Nasal Cannula Oxygen Flow Rate Telemetry Type Telemetry Monitoring Telemetry Heart Rate Telemetry SPO2 EKG DE Interval EKG QRS Interval Telemetry Strip Reading 10/05/24 01:00 10/05/24 02:00 10/05/24 02:00 Temperature Temperature Source Pulse Rate 94 Pulse Rate [Apical] Respiratory Rate Blood Pressure Blood Pressure Mean Blood Pressure Location Blood Pressure Position O2 Sat by Pulse Oximetry 94 L Oxygen Delivery Method Nasal Cannula Nasal Cannula Oxygen Flow Rate 1 Telemetry Type Remote Telemetry Telemetry Monitoring Continues Telemetry Heart Rate 88 Telemetry SPO2 94 EKG DE Interval 0.19 EKG QRS Interval 0.08 Telemetry Strip Reading SR 10/05/24 03:00 10/05/24 04:00 10/05/24 05:00 Temperature Temperature Source Pulse Rate Pulse Rate [Apical] Respiratory Rate Blood Pressure Blood Pressure Mean Blood Pressure Location Blood Pressure Position O2 Sat by Pulse Oximetry Oxygen Delivery Method Nasal Cannula Nasal Cannula Nebulizer Treatment Oxygen Flow Rate Telemetry Type Telemetry Monitoring Telemetry Heart Rate Telemetry SPO2 EKG DE Interval EKG QRS Interval Telemetry Strip Reading 10/05/24 05:00 10/05/24 05:26 10/05/24 05:30 Temperature 97.9 F Temperature Source Temporal Artery Scan Pulse Rate 80 Pulse Rate [Apical] Respiratory Rate 16 Blood Pressure 148/92 H Blood Pressure Mean 110 Blood Pressure Location Left Arm Blood Pressure Position Supine O2 Sat by Pulse Oximetry 100 Oxygen Delivery Method Nebulizer Treatment Nasal Cannula Nebulizer Treatment Oxygen Flow Rate 1 Telemetry Type Telemetry Monitoring Telemetry Heart Rate Telemetry SPO2 EKG DE Interval EKG QRS Interval Telemetry Strip Reading 10/05/24 06:00 10/05/24 07:00 10/05/24 07:00 Temperature Temperature Source Pulse Rate Pulse Rate [Apical] Respiratory Rate Blood Pressure Blood Pressure Mean Blood Pressure Location Blood Pressure Position O2 Sat by Pulse Oximetry Oxygen Delivery Method Nebulizer Treatment Nasal Cannula Oxygen Flow Rate Telemetry Type Remote Telemetry Telemetry Monitoring Continues Telemetry Heart Rate 87 Telemetry SPO2 92 L EKG DE Interval 0.20 EKG QRS Interval 0.08 Telemetry Strip Reading NSR 10/05/24 08:00 10/05/24 08:00 10/05/24 09:00 Temperature Temperature Source Pulse Rate Pulse Rate [Apical] 84 Respiratory Rate 20 Blood Pressure Blood Pressure Mean Blood Pressure Location Blood Pressure Position O2 Sat by Pulse Oximetry Oxygen Delivery Method Nasal Cannula Nasal Cannula Nasal Cannula Oxygen Flow Rate 1 Telemetry Type Telemetry Monitoring Telemetry Heart Rate Telemetry SPO2 EKG DE Interval EKG QRS Interval Telemetry Strip Reading Lab Results Lab Results: Lab Results: Last 24 Hours 10/05/24 05:19 WBC 11.15 H RBC 4.53 L Hgb 13.0 L Hct 41.9 L MCV 92.5 MCH 28.7 MCHC 31.0 L RDW Coeff of Laura 12.8 Plt Count 200 Immature Gran % (Auto) 0.4 Neut % (Auto) 80.6 H Lymph % (Auto) 7.8 L [place] % (Auto) 10.7 H Eos % (Auto) 0.4 Baso % (Auto) 0.1 Neut # (Auto) 9.0 H Lymph # (Auto) 0.9 [place] # (Auto) 1.2 Eos # (Auto) 0.0 Baso # (Auto) 0.0 Immature Gran # (Auto) 0.1 Sodium 135.7 Potassium 3.51 Chloride 97.4 L Carbon Dioxide 32.5 H Anion Gap 9.31 BUN 13.5 Creatinine 0.80 Estimated GFR (MDRD) 121.00 BUN/Creatinine Ratio 16.87 Glucose 132.4 H D Calcium 8.34 L Total Bilirubin 0.35 AST 27.7 ALT 17.9 Alkaline Phosphatase 75.7 Total Protein 6.95 Albumin 3.73 Globulin 3.22 Albumin/Globulin Ratio 1.15 Additional Comments Additional Comments: I have independently reviewed and interpreted the labs/EKGs/imaging ordered during this hospital stay. I have reviewed outside records that are available in our EMR that pertain to medical stay including imaging/notes/labs from previous visits. Active Medications Active Medications: Medications Generic Name Dose Route Start Last Admin Trade Name Tank PRN Reason Stop Dose Admin Acetaminophen 650 mg 10/03/24 13:16 Acetaminophen 325 Mg Tablet PO Q4H PRN Mild Pain Albuterol/Ipratropium 3 ml 10/03/24 18:00 10/05/24 05:27 Ipratropium/Albuterol Vial.Neb NEB 3 ml RTQ6H MICHAEL Administration Amlodipine Besylate 10 mg 10/04/24 09:00 10/05/24 08:18 Amlodipine Besylate 5 Mg Tablet PO 10 mg DAILY MICHAEL Administration Budesonide/Formoterol Fumarate 2 puff 10/03/24 21:00 10/05/24 08:21 Budesonide/Formoterol Fumarate 160/4.5 Mcg Inhaler IH 2 puff BID MICHAEL Administration Levofloxacin/Dextrose 750 mg in 150 mls @ 100 mls/hr 10/04/24 09:00 10/05/24 08:21 Levaquin 750 Mg/150 Ml D5w IV 10/07/24 08:59 100 mls/hr DAILY MICHAEL Administration Sodium Chloride 1,000 mls @ 75 mls/hr 10/03/24 15:00 10/04/24 20:29 Sodium Chloride IV 75 mls/hr .[id number] MICHAEL Administration Methylprednisolone Sodium Succinate 40 mg 10/03/24 21:00 10/05/24 05:33 Methylprednisolone Sod Succ/Pf 40 Mg/Ml Vial IVP 40 mg Q8HR MICHAEL Administration Phenol/Menthol 1 spray 10/04/24 15:43 10/04/24 21:09 Phenol 1 [place] Btl MM 1 spray Q2H PRN Administration SORE THROAT Plan Plan: 1. Acute hypoxic respiratory failure in setting of COPD exacerbation - Improving, on 1L, abx, steroids, duonebs, wean O2 when able 2. Acute COPD exacerbation - plan as above 3. Hyponatremia, acute - Resolved, stopping fluids 4. BRAD, stage I - Resolved, stopping fluids 5. Hypertension - Cont home meds. DVT Prophylaxis: Ambulation Dispo: Homeless, family unable to care for him, D/c to [facility], [place] Monday Review Statement Review Statement: I have personally discussed and reviewed the patient's visit/currently labs/imaging/decision making with Dr. Leon, my supervising attending. Greater that 50 minutes spent with patient, 50% of the time spent with this patient was devoted to counseling and coordination of care.
[2024-10-05] MEDS: MUCINEX PO SCH (20:21)
[2024-10-06] MEDS: LEVAQUIN PO SCH (05:15)
[2024-10-06 05:38] LABS: ALANINE AMINOTRANSFERASE 22.7 U/L (0-50); ALBUMIN 3.43 g/dL (3.5-5.0); ALKALINE PHOSPHATASE 102.2 U/L (38-126); ASPARTATE AMINO TRANSFERASE 33.2 U/L (17-59); BILIRUBIN,TOTAL 0.39 mg/dL (0.2-1.3); BLOOD UREA NITROGEN 9.7 mg/dL (9-20); CALCIUM 8.4 mg/dL (8.4-10.2); CARBON DIOXIDE 35.6 mmol/L (22-30.0); CHLORIDE 94.2 mmol/L (98-107); CREATININE 0.7 mg/dL (0.60-1.10); GLUCOSE 157.7 mg/dL (74-106); POTASSIUM 3.03 mmol/L (3.5-5.1); SODIUM 135.4 mmol/L (134.5-145); TOTAL PROTEIN 6.35 g/dL (6.3-8.2)
[2024-10-06 06:00] LABS: BASOPHILS % (AUTO) 0.2 % (0.0-3.0); HEMATOCRIT 40.3 % (42.0-52.0); HEMOGLOBIN 12.4 g/dl (14.0-18.0); IMMATURE GRANULOCYTE % (AUTO) 0.4 % (0.0-5.0); LYMPHOCYTES # (AUTO) 1.1 K/uL (0.60-3.4); LYMPHOCYTES % (AUTO) 10.1 (10.0-50.0); MEAN CORPUSCULAR HEMOGLOBIN 29.2 pg (27.0-31.0); MEAN CORPUSCULAR HGB CONC 30.8 (31.8-35.4); MEAN CORPUSCULAR VOLUME 94.8 fl (80.0-94.0); MONOCYTES # (AUTO) 0.6 K/uL (0.4-2.0); MONOCYTES % (AUTO) 5.8 (0-10); NEUTROPHILS # (AUTO) 9.1 K/ul (2.0-6.9); NEUTROPHILS % (AUTO) 83.5 % (42.2-75.2); PLATELET COUNT 190 10^3/uL (140-440); RDW COEFFICIENT OF VARIATION 12.8 % (11.6-14.8); RED BLOOD COUNT 4.25 10^6/ul (4.70-6.10); WHITE BLOOD COUNT 10.88 K/ul (4.2-10.2)
[2024-10-06] MEDS: TOPROL XL PO SCH (08:39)
[2024-10-06] MEDS: K-DUR PO SCH (08:39)
[2024-10-06] MEDS: POTASSIUM CHLORIDE 20 MEQ/100 ML PREMIX 20 MEQ/100 ML BAG IV ONE ×2 (08:40→10:41)
--- NOTE | 2024-10-06 09:08 | DCSUM ---
Admission Date Admission Date: 10/03/24 Discharge Date Discharge Date: 10/06/24 Admission Diagnosis Admission Diagnosis: 1. Acute hypoxic respiratory failure in setting of COPD exacerbation 2. Acute COPD exacerbation 3. Hyponatremia, acute 4. BRAD, stage I 5. Hypertension Discharge Diagnosis Discharge Diagnosis: 1. Acute hypoxic respiratory failure in setting of COPD exacerbation - Unchanged, requiring 2L at all times 2. Acute COPD exacerbation - Improved 3. Hyponatremia, acute - Resolved 4. BRAD, stage I - Resolved 5. Hypertension - chronic stable Hospital Provider Hospital Provider: ANGELA BURK, [facility] Primary Care Physician Primary Care Physician: CANDACE RENDON MD Summary of History and Physical Summary of History and Physical: Patient is a 59 year old male who presents to ER with worsening COPD symptoms. Patient was seen in the ER recently and prescribed steroids. He states he's been taking them without relief. He continues to have cough and sob, worse with exertion. He quit smoking 3 weeks ago due to worsening symptoms as well. In ER he was noted to be 88-89% on RA. He was placed on 2L and while trying to wean him back down he desaturated to 89% again. He was given solumedrol and levaquin. Will admit to med surg. Patient has been living with his niece lately. Niece is interested in halfway placement. The patient is agreeable. Hospital Course Subjective: During stay, patient was treated for COPD exacerbation with levaquin, steroids, and nebs. Staff attempted to wean patient from O2 multiple times and were unsuccessful. Sat would drop as low as 83% on RA but recover as soon as oxygen was placed back on at 2L. States he is feeling better today and breathing feels much improved. Wheezing has greatly improved but mildly noted in lung bases during expiration. No s/sx of distress. On admission, he was hyponatremic at 126.6. This resolved with IV fluids. 135 today. Potassium of 3 today. Has history of hypokalemia in chart and has taken supplementation previous. Replacement given. No s/sx. Restart home supplementation on discharge. Recommend PCP repeat level later this week. D/c to [facility] today Appearance: Pleasant, No Apparent Distress, Alert and Well-appearing HEENT: MMM, Supple and No JVD CVS: No Murmur Abdomen: Soft, Non-Tender and No Distention Respiratory: No Dyspnea Extremities: No Edema Vital Signs: Most Recent Vital Signs Temperature 98.2 F 10/06/24 05:18 Temperature Source Temporal Artery Scan 10/06/24 05:18 Temperature Source Infrared 10/03/24 09:36 Pulse Rate 76 10/06/24 05:18 Respiratory Rate 18 10/06/24 05:18 Blood Pressure 161/99 H 10/06/24 05:18 Blood Pressure Mean 119 10/06/24 05:18 Blood Pressure Right Arm 108/82 10/03/24 12:42 Blood Pressure Location Left Arm 10/06/24 05:18 Blood Pressure Position Supine 10/06/24 05:18 O2 Sat by Pulse Oximetry 97 10/06/24 05:18 Oxygen Delivery Method Nasal Cannula 10/06/24 07:00 Oxygen Flow Rate 2 10/06/24 05:34 Height 5 ft 7 in 10/03/24 12:42 Weight 62.2 kg 10/03/24 12:42 Telemetry Type Remote Telemetry 10/06/24 01:00 Telemetry Monitoring Continues 10/06/24 01:00 Telemetry Heart Rate 81 10/06/24 01:00 Telemetry SPO2 96 10/06/24 01:00 EKG MN Interval 0.16 10/06/24 01:00 EKG QRS Interval 0.09 10/06/24 01:00 Telemetry Strip Reading SR 10/06/24 01:00 Imaging: EXAM: CHEST RADIOGRAPH TECHNIQUE: Single frontal chest radiograph. HISTORY: Shortness of breath. COMPARISON: Chest single view 09/28/2024 FINDINGS: Cardiac silhouette, mediastinal size and pulmonary vasculature are normal. The aortic arch calcified plaque and tortuous descending thoracic aorta are unchanged. Bilateral well expanded lungs are clear. No infiltrates or acute process is seen. There is no pneumothorax. IMPRESSION: No acute cardiopulmonary process. No change since the previous study. Lab Results Last 24 Hours: 10/06/24 04:54 WBC 10.88 H RBC 4.25 L Hgb 12.4 L Hct 40.3 L MCV 94.8 H MCH 29.2 MCHC 30.8 L RDW Coeff of Laura 12.8 Plt Count 190 Immature Gran % (Auto) 0.4 Neut % (Auto) 83.5 H Lymph % (Auto) 10.1 Emery % (Auto) 5.8 Eos % (Auto) 0.0 Baso % (Auto) 0.2 Neut # (Auto) 9.1 H Lymph # (Auto) 1.1 Emery # (Auto) 0.6 Eos # (Auto) 0.0 Baso # (Auto) 0.0 Immature Gran # (Auto) 0.0 Sodium 135.4 Potassium 3.03 L Chloride 94.2 L Carbon Dioxide 35.6 H Anion Gap 8.63 BUN 9.7 Creatinine 0.70 Estimated GFR (MDRD) 141.00 BUN/Creatinine Ratio 13.85 Glucose 157.7 H Calcium 8.40 Total Bilirubin 0.39 AST 33.2 ALT 22.7 Alkaline Phosphatase 102.2 D Total Protein 6.35 Albumin 3.43 L Globulin 2.92 Albumin/Globulin Ratio 1.17 Discharge Instructions Discharge Planning: Discharge Planning > 40 minutes If patient is discharged with left ventricular systolic dysfunction: NO Discharged with a beta aydin? [] If no, why not? [] Discharged with an noemí/arb? [] If no, why not? [] Diagnosis: COPD Exacerbation Diet: Regular Activity: as tolerated Medications: Levaquin, Potassium, Metoprolol Mucinex Oxygen: 2L via NC continuous Discharge Medications: RX At Discharge guaifenesin 600 mg tablet, extended release 12 hr (Mucinex) 600 mg PO Q12HR #10 tabs 10/06/24 [Rx] levofloxacin 500 mg tablet 750 mg (1.5 x 500 mg) PO QDAC2 #1 tab 10/06/24 [Rx] metoprolol succinate 50 mg tablet,extended release 24 hr 50 mg PO DAILY #30 tabs 10/06/24 [Rx] potassium chloride 20 mEq tablet,extended release(part/cryst) 20 meq PO BIDWM2 #60 tabs 10/06/24 [Rx] Discharge Plan Discharge Discharge Orders: Discharge Patient (ONCE); Ordered 10/06/24 Ordered By: AV MEDEROS Activity Restrictions/Additional Instructions: Diagnosis: COPD Exacerbation Diet: Regular Activity: as tolerated Medications: Levaquin, Potassium, Metoprolol Mucinex Oxygen: 2L via NC continuous Instructions: COPD (Chronic Obstructive Pulmonary Disease) (GEN) Patient Disposition: TRANSFER SNF Prescriptions: New metoprolol succinate 50 mg Tablet Extended Release 24 Hr 50 mg PO DAILY Qty: 30 0RF potassium chloride 20 mEq Tablet,Er Particles/Crystals 20 meq PO BIDWM2 Qty: 60 0RF levofloxacin 500 mg Tablet 750 mg PO QDAC2 Qty: 1 0RF guaifenesin [Mucinex] 600 mg Tablet Extended Release 12hr 600 mg PO Q12HR Qty: 10 0RF Continued fluticasone propion-salmeterol [Wixela Inhub] 250-50 mcg/dose blister with device 1 inh inhalation BID Qty: 60 1RF albuterol sulfate 2.5 mg /3 mL (0.083 %) solution for nebulization 2.5 mg inhalation Q4-6H PRN (Reason: shortness of breath or wheezing) Qty: 90 0RF amlodipine 10 mg tablet 10 mg PO DAILY Qty: 30 0RF Discontinued lisinopril 40 mg tablet 40 mg PO QDAY Qty: 30 5RF tiotropium bromide [Spiriva with HandiHaler] 18 mcg capsule, w/inhalation device 1 cap inhalation QDAY Qty: 60 1RF Rx Instructions: puncture 1 cap using device; one dose = 2 inhalations (STOP TRELEGY and YUPELRI NOT COVERED) metoprolol succinate 50 mg tablet extended release 24 hr 50 mg PO QDAY Qty: 30 5RF potassium chloride 20 mEq tablet extended release 20 meq PO BIDWM2 Qty: 60 0RF albuterol sulfate 90 mcg/actuation HFA aerosol inhaler 2 puff inhalation Q6H PRN (Reason: shortness of breath or wheezing) Qty: 6.7 0RF prednisone 50 mg tablet 50 mg PO DAILY Qty: 7 0RF lisinopril-hydrochlorothiazide [Zestoretic] 20-25 mg tablet 1 tab PO DAILY Qty: 30 0RF amlodipine 10 mg tablet 10 mg PO QDAY Qty: 30 1RF Rx Instructions: Dose increase from 5mg daily to 10mg daily 07/25/23. spironolactone 25 mg tablet 25 mg PO QDAY Qty: 30 1RF No Action (DME) nebulizer and compressor Device See Rx Instructions .ROUTE Qty: 1 0RF Rx Instructions: As directed (DME) Aerochamber MV Spacer See Rx Instructions .ROUTE Qty: 10 0RF Rx Instructions: As directed Did you review [place] AUTOMATIC GLUING MACHINE OPERATOR for ALL controlled substances?: No Discussed opioids are addictive and Narcan is available by prescription or from pharmacy.: No Condition: Stable
[2024-10-06 10:41] VITALS: PULSE 78; RESP 20
[2024-10-06 15:08] VITALS: BP 164/98; TEMP 97.7
== END 2024-10-06 15:30 ==
LOC: MEDSURG B 09:21 → ED 09:21 → MEDSURG B 12:32
PROVIDERS: ADMIT Hospitalist; ATTEND Nurse Practitioner Family
DX: E87.1 Hypo-osmolality and hyponatremia; J44.1 Chronic obstructive pulmonary disease with (acute) exacerbation; Z20.822 Contact with and (suspected) exposure to COVID-19; J96.01 Acute respiratory failure with hypoxia; Z51.81 Encounter for therapeutic drug level monitoring; I10 Essential (primary) hypertension; Z79.899 Other long term (current) drug therapy; N17.9 Acute kidney failure, unspecified

== ENCOUNTER 2025-01-14 09:29 | Inpatient (IN) ==
--- NOTE | 2025-01-14 09:35 | ED.PDOC ---
General ED Provider: Dr. NATHAN PORTILLO MD Chief Complaint: Shortness of Air Stated Complaint: Patient is a 59-year-old male with past medical history of COPD, hypertension, anemia, cardiomegaly, cocaine abuse, alcohol abuse who presents with complaint of shortness of breath since last night. Patient also complains of productive cough. Patient states that he has been having subjective fevers. Patient denies any runny nose, sore throat, nausea, vomiting, abdominal pain or any urinary symptoms. Patient denies any smoking, alcohol or any illicit drug use. Time Seen by Provider: 01/14/25 09:31 Primary Care Provider: CANDACE RENDON MD Nursing and Triage Documentation Reviewed and Agree: Yes What is Opioid Naive?: *Opioid Naive implies the patient is not already taking opioids or not chronically receiving opioids on a daily basis. *PRN dosing is not "usually" associated with tolerance. *Patients are at higher risk of over-sedation and aspiration. What is Opioid Tolerant?: *Opioid Tolerance implies less than the expected response to an opioid. *Acquired tolerance is defined by the patient taking 60mg of oral morphine daily (or equianalgesic dose of another opioid) for 1 week or more. *Often associated with chronic pain. *May take more than usual dose to achieve desired pain control. Review of Systems Review Of Systems Constitutional: Reports Fever Eyes: Reports No symptoms Ears, Nose, Mouth, Throat: Reports No symptoms Respiratory: Reports Cough and Shortness of Breath Cardiac: Reports No symptoms GI: Reports No symptoms : Reports No symptoms Musculoskeletal: Reports No symptoms Skin: Reports No symptoms Neurological: Reports No symptoms Endocrine: Reports No symptoms Hematologic/Lymphatic: Reports No symptoms All Other Systems: Reviewed and Negative [facility] Medical History Arthritis M19.90 - Unspecified osteoarthritis, unspecified site (ICD-10) Hypertension I10 - Essential (primary) hypertension (ICD-10) COPD (chronic obstructive pulmonary disease) J44.9 - Chronic obstructive pulmonary disease, unspecified (ICD-10) Family History BROTHER , Throat Cancer COPD (chronic obstructive pulmonary disease) Cancer Mother Diabetes Stroke Social History Smoking and tobacco status: Former smoker Quit status: quit date established Second hand smoke exposure: No Smoking risk assessment performed: No Alcohol intake: current Alcohol intake frequency: a few times a month Counseling given: No Counseling provided: none Details: 1 pint a week Substance use type: marijuana Counseling given: No Counseling provided: none Marital status: S SINGLE Lives independently: Yes Number of children: 0 service: No Current occupational status: unemployed Pets and animals: No History of recent travel: No Sexually active: Yes Do you think of yourself as: straight/heterosexual Current gender identity: male Seatbelt use: always Helmet use: No Drives intoxicated or rides with intoxicated trencher driver: No Water heater temperature set < 120 degrees: Yes Working smoke detector in home: Yes Fire extinguisher in home: Yes Carbon monoxide detector in home: No Firearms in home: No Physical Exam Physical Exam Appearance: Reports Ill-appearing and No pain distress Ill-appearing: Mild Pain Distress: Mild Eyes: Reports CAT, EOMI and Conjunctiva clear ENT: Reports Nose normal and Oropharynx normal Neck: Supple Respiratory: Reports Airway patent, Rhonchi, Wheezes and Other (Tachypnea, using accessory muscles of respiration) Cardiovascular: Reports RRR and Pulses normal GI/: Reports Soft and Nontender Musculoskeletal: Reports Normal strength and ROM intact Skin: Reports Warm and Normal color Neurological: Reports Sensation intact, Motor intact, Alert and Oriented Psychiatric: Reports Affect appropriate Critical Care Note Critical Care Note Total Critical Care Time (mins): 40 Course Course 01/14/25 09:42 01/14/25 09:42 Orders, Labs, Meds: Lab Review 01/14/25 01/14/25 01/14/25 09:41 09:42 09:45 WBC 9.53 RBC 4.91 Hgb 13.8 L Hct 44.1 MCV 89.8 MCH 28.1 MCHC 31.3 L RDW Coeff of Laura 15.6 H Plt Count 250 Immature Gran % (Auto) 0.4 Neut % (Auto) 34.1 L Lymph % (Auto) 48.1 [place] % (Auto) 12.3 H Eos % (Auto) 4.4 Baso % (Auto) 0.7 Neut # (Auto) 3.3 Lymph # (Auto) 4.6 H [place] # (Auto) 1.2 Eos # (Auto) 0.4 Baso # (Auto) 0.1 Immature Gran # (Auto) 0.0 Puncture Site Rt rad Base Excess 8.1 H O2 Saturation 99.9 H ABG pH 7.28 L* ABG pCO2 74.0 H ABG pO2 270.0 H ABG HCO3 34.8 H ABG Total CO2 37.1 H Mamadou Test Pos Hemoglobin 1.4 Oxyhemoglobin 96.5 Carboxyhemoglobin 1.7 H Total Hemoglobin 14.2 O2 Delivery Device Non rebreather Oxygen Liter Flow 15.00 FiO2 % 100.0 Sodium 139.5 Potassium 4.41 Chloride 98.0 Carbon Dioxide 32.2 H Anion Gap 13.71 BUN 11.6 Creatinine 0.84 Estimated GFR (MDRD) 114.00 BUN/Creatinine Ratio 13.80 Glucose 128.4 H Lactic Acid 0.64 L Calcium 9.89 Magnesium 1.73 Total Bilirubin 0.63 AST 36.1 ALT 25.1 Alkaline Phosphatase 78.7 Total Creatine Kinase 173.0 H CK-MB (CK-2) 2.530 H CK-MB (CK-2) % 1.4600 Troponin I 0.019 NT-Pro-B Natriuret Pep 82 Total Protein 8.22 H Albumin 4.69 Globulin 3.53 Albumin/Globulin Ratio 1.32 D-Dimer 530.98 H Influ A Molecular Assay Negative by naat Influ B Molecular Assay Negative by naat SARS CoV-2 RNA Rapid CELENA Negative 01/14/25 11:36 WBC RBC Hgb Hct MCV MCH MCHC RDW Coeff of Laura Plt Count Immature Gran % (Auto) Neut % (Auto) Lymph % (Auto) [place] % (Auto) Eos % (Auto) Baso % (Auto) Neut # (Auto) Lymph # (Auto) [place] # (Auto) Eos # (Auto) Baso # (Auto) Immature Gran # (Auto) Puncture Site Rt rad Base Excess 8.6 H O2 Saturation 94.2 ABG pH 7.38 ABG pCO2 57.0 H ABG pO2 73.0 L ABG HCO3 33.7 H ABG Total CO2 35.4 H Mamadou Test Pos Hemoglobin 1.1 Oxyhemoglobin 94.3 L Carboxyhemoglobin 2.5 H Total Hemoglobin 13.4 O2 Delivery Device Bipap Oxygen Liter Flow FiO2 % 30.0 Sodium Potassium Chloride Carbon Dioxide Anion Gap BUN Creatinine Estimated GFR (MDRD) BUN/Creatinine Ratio Glucose Lactic Acid Calcium Magnesium Total Bilirubin AST ALT Alkaline Phosphatase Total Creatine Kinase CK-MB (CK-2) CK-MB (CK-2) % Troponin I NT-Pro-B Natriuret Pep Total Protein Albumin Globulin Albumin/Globulin Ratio D-Dimer Influ A Molecular Assay Influ B Molecular Assay SARS CoV-2 RNA Rapid CELENA Orders Category Date Time Status ADMIT PATIENT INPATIENT .TO [facility] (MONITORED BED) ADMISSION 01/14/25 11:26 Active ABG DRAW REQUEST Stat CARDIO 01/14/25 09:31 Completed ABG DRAW REQUEST Stat CARDIO 01/14/25 11:25 Completed BIPAP Routine CARDIO 01/14/25 11:28 Active EKG-(ED ONLY) Stat CARDIO 01/14/25 09:31 Completed NEBULIZER TREATMENT Routine CARDIO 01/14/25 11:28 Active ACTIVITY .Early Mobilization for VTE Prevention CARE 01/14/25 11:26 Active INTAKE & OUTPUT Q8HR CARE 01/14/25 11:26 Active TELEMETRY MONITORING TELE CARE 01/14/25 11:26 Active VITAL SIGNS Q8HR CARE 01/14/25 11:26 Active ABG COOX Stat LAB 01/14/25 09:41 Completed ABG COOX Stat LAB 01/14/25 11:36 Completed CBC W/ AUTO DIFF DAILY@0600 LAB 01/15/25 06:00 Ordered CBC W/ AUTO DIFF DAILY@0600 LAB 01/16/25 06:00 Ordered CBC W/ AUTO DIFF Stat LAB 01/14/25 09:42 Completed CK [CREATINE KINASE] Stat LAB 01/14/25 09:42 Completed CMP [COMPREHENSIVE METABOLIC PANEL] Stat LAB 01/14/25 09:42 Completed COMPREHENSIVE METABOLIC PANEL DAILY@0600 LAB 01/15/25 06:00 Ordered COMPREHENSIVE METABOLIC PANEL DAILY@0600 LAB 01/16/25 06:00 Ordered COVID [SARS COV-2 RNA RAPID CELENA] Stat LAB 01/14/25 09:45 Completed D-DIMER Stat LAB 01/14/25 09:42 Completed FLU A & B MOLECULAR [FLU A/B MOLECULAR] Stat LAB 01/14/25 09:45 Completed LACTIC ACID Stat LAB 01/14/25 09:42 Completed MAGNESIUM Stat LAB 01/14/25 09:42 Completed NT-PROBNP Stat LAB 01/14/25 09:42 Completed TROPONIN I Stat LAB 01/14/25 09:42 Completed Acetaminophen [Tylenol] Meds 01/14/25 11:26 Active 650 mg PO Q4H PRN Ceftriaxone/D5w 1 gm Premix [Rocephin 1 gm/50 ml D5w] Meds 01/14/25 12:00 Active 1 gm in 50 ml IV DAILY Furosemide [Lasix] Meds 01/14/25 09:31 Discontinued 40 mg IVP ONCE STA Ipratropium/Albuterol Neb [Duoneb] Meds 01/14/25 14:00 Active 3 ml NEB RTQ4H Ipratropium/Albuterol Neb [Duoneb] Meds 01/14/25 09:31 Discontinued 9 ml NEB ONCE STA Methylprednisolone Sod Succ/Pf [Solu-Medrol 125 mg] Meds 01/14/25 09:33 Discontinued 125 mg IVP ONCE ONE Methylprednisolone Sod Succ/Pf [Solu-Medrol 40 mg] Meds 01/14/25 17:00 Active 40 mg IVP Q8HR CHEST, 1V AP ONLY Stat RADS 01/14/25 09:31 Completed Medications Generic Name Dose Route Start Last Admin Trade Name Freq PRN Reason Stop Dose Admin Acetaminophen 650 mg 01/14/25 11:26 Acetaminophen 325 Mg Tablet PO Q4H PRN Mild Pain Albuterol Sulfate 2.5 mg 01/14/25 12:20 Albuterol Sulfate 0.083% Vial.Neb NEB RTQ4H PRN Wheezing Albuterol/Ipratropium 3 ml 01/14/25 14:00 01/14/25 21:13 Ipratropium/Albuterol Vial.Neb NEB 3 ml RTQ4H MICHAEL Administration Amlodipine Besylate 10 mg 01/15/25 09:00 Amlodipine Besylate 5 Mg Tablet PO DAILY MICHAEL Artificial Tears 1 drop 01/15/25 09:00 Polyvinyl Alcohol 15 Ml Opth Silvia EACHEYE DAILY MICHAEL Azithromycin 500 mg 01/14/25 13:00 01/14/25 13:44 Azithromycin 250 Mg Tablet PO 01/16/25 12:59 500 mg DAILY MICHAEL Administration Budesonide/Formoterol Fumarate 2 puff 01/14/25 21:00 01/14/25 20:21 Budesonide/Formoterol Fumarate 160/4.5 Mcg Inhaler IH 2 puff BID MICHAEL Administration Guaifenesin 600 mg 01/14/25 21:00 01/14/25 20:21 Guaifenesin 600 Mg Tablet.Er PO 600 mg Q12HR MICHAEL Administration Guaifenesin/Dextromethorphan 10 ml 01/14/25 13:08 Guaifenesin/Dextromethorphan 200/20 Mg/10 Ml Cup PO Q6H PRN Cough CEFTRIAXONE/D5W 1 GM PREMIX 1 gm in 50 mls @ 100 mls/hr 01/14/25 12:00 01/14/25 13:00 Rocephin 1 Gm/50 Ml D5w IV 01/17/25 11:59 100 mls/hr DAILY MICHAEL Administration Methylprednisolone Sodium Succinate 40 mg 01/14/25 17:00 01/14/25 20:25 Methylprednisolone Sod Succ/Pf 40 Mg/Ml Vial IVP 40 mg Q8HR MICHAEL Administration Discontinued Medications Generic Name Dose Route Start Last Admin Trade Name Freq PRN Reason Stop Dose Admin Albuterol/Ipratropium 9 ml 01/14/25 09:31 01/14/25 09:40 Ipratropium/Albuterol Vial.Neb NEB 01/14/25 09:32 9 ml ONCE STA Administration Furosemide 40 mg 01/14/25 09:31 01/14/25 09:44 Furosemide Inj 40 Mg/4 Ml Vial IVP 01/14/25 09:32 40 mg ONCE STA Administration Methylprednisolone Sodium Succinate 125 mg 01/14/25 09:33 01/14/25 09:44 Methylprednisolone Sod Succ/Pf 125 Mg/2 Ml Vial IVP 01/14/25 09:34 125 mg ONCE ONE Administration CHEST RADIOGRAPH TECHNIQUE: Single frontal chest radiograph. HISTORY: Shortness of breath. COMPARISON: 10/03/2024 and 04/19/2023 FINDINGS: The patient is leaning and rotated to the right. EKG leads project over the chest. No pulmonary infiltrate is identified. No pleural effusion or pneumothorax is seen. Heart size is normal. Tortuosity and ectasia of the thoracic aorta, again noted. No acute displaced rib fractures are identified. IMPRESSION: 1. No acute findings in the chest. Vital Signs: Temp Pulse Resp BP Pulse Ox O2 Flow Rate 01/14/25 11:00 100 01/14/25 09:56 100 01/14/25 09:38 15 01/14/25 09:31 99.4 F 122 H 27 H 176/107 H 100 Discharge Plan Discharge Patient Disposition: ADMITTED INPATIENT Discharge Problem: Acute exacerbation of chronic obstructive pulmonary disease Did you review [place] BUSINESS SYSTEM CONSULTANT for ALL controlled substances?: Not Applicable ED Provider: NATHAN PORTILLO Physician Progress Note: ER course: Patient is a 59-year-old male who presented with complaint of shortness of breath, cough and subjective fevers. Differential diagnosis included but not limited to COPD exacerbation, pneumonia, asthma exacerbation, CHF exacerbation, pleural effusion, pneumonitis, bronchitis, sinusitis, laryngitis, viral syndrome. Patient was administered DuoNebs, IV steroids. Lab and imaging results reviewed. Patient clinically improved but continues to have symptoms. Will start patient on ceftriaxone and azithromycin. Will admit to the hospitalist services. Discussed with Ms. Av Ellis NP hospitalist services and the patient was admitted to Dr. eLon
[2025-01-14] MEDS: DUONEB NEB STA (09:40)
[2025-01-14] MEDS: LASIX IVP STA (09:44)
[2025-01-14] MEDS: SOLU-MEDROL 125 MG IVP ONE (09:44)
[2025-01-14 09:45] LABS: BASOPHILS # (AUTO) 0.1 K/uL (0-0.2); BASOPHILS % (AUTO) 0.7 % (0.0-3.0); EOSINOPHILS # (AUTO) 0.4 K/ul (0.0-0.7); EOSINOPHILS % (AUTO) 4.4 % (0.0-7.0); HEMATOCRIT 44.1 % (42.0-52.0); HEMOGLOBIN 13.8 g/dl (14.0-18.0); IMMATURE GRANULOCYTE % (AUTO) 0.4 % (0.0-5.0); LYMPHOCYTES # (AUTO) 4.6 K/uL (0.60-3.4); LYMPHOCYTES % (AUTO) 48.1 (10.0-50.0); MEAN CORPUSCULAR HEMOGLOBIN 28.1 pg (27.0-31.0); MEAN CORPUSCULAR HGB CONC 31.3 (31.8-35.4); MEAN CORPUSCULAR VOLUME 89.8 fl (80.0-94.0); MONOCYTES # (AUTO) 1.2 K/uL (0.4-2.0); MONOCYTES % (AUTO) 12.3 (0-10); NEUTROPHILS # (AUTO) 3.3 K/ul (2.0-6.9); NEUTROPHILS % (AUTO) 34.1 % (42.2-75.2); PLATELET COUNT 250 10^3/uL (140-440); RDW COEFFICIENT OF VARIATION 15.6 % (11.6-14.8); RED BLOOD COUNT 4.91 10^6/ul (4.70-6.10); WHITE BLOOD COUNT 9.53 K/ul (4.2-10.2)
[2025-01-14 09:46] LABS: ABG O2 HGB 96.5 % (95-100); BEecf 8.1 (-2.0-3.0); COHb 1.7 (0.5-1.5); HCO3 34.8 (21-28); MetHb 1.4 (0-1.5); TCO2 37.1 (19-24); sO2 99.9 % (94-98); tHb 14.2 g/dl (11.7-17.4)
[2025-01-14 09:47] LABS: ABG PH 7.28 (7.35-7.45)
[2025-01-14 09:57] LABS: ALANINE AMINOTRANSFERASE 25.1 U/L (0-50); ALBUMIN 4.69 g/dL (3.5-5.0); ALKALINE PHOSPHATASE 78.7 U/L (38-126); ASPARTATE AMINO TRANSFERASE 36.1 U/L (17-59); BILIRUBIN,TOTAL 0.63 mg/dL (0.2-1.3); BLOOD UREA NITROGEN 11.6 mg/dL (9-20); CALCIUM 9.89 mg/dL (8.4-10.2); CARBON DIOXIDE 32.2 mmol/L (22-30.0); CREATININE 0.84 mg/dL (0.60-1.10); GLUCOSE 128.4 mg/dL (74-106); MAGNESIUM 1.73 mg/dL (1.6-2.3); POTASSIUM 4.41 mmol/L (3.5-5.1); SODIUM 139.5 mmol/L (134.5-145); TOTAL PROTEIN 8.22 g/dL (6.3-8.2)
--- NOTE | 2025-01-14 09:57 | DI ---
EXAM: CHEST RADIOGRAPH TECHNIQUE: Single frontal chest radiograph. HISTORY: Shortness of breath. COMPARISON: 10/03/2024 and 04/19/2023 FINDINGS: The patient is leaning and rotated to the right. EKG leads project over the chest. No pulmonary infiltrate is identified. No pleural effusion or pneumothorax is seen. Heart size is normal. Tortuosity and ectasia of the thoracic aorta, again noted. No acute displaced rib fractures are identified. IMPRESSION: 1. No acute findings in the chest.
[2025-01-14 10:04] LABS: MOLECULAR FLU A NEGATIVE BY NAAT (NEGATIVE); MOLECULAR FLU B NEGATIVE BY NAAT (NEGATIVE); SARS COV-2 RNA RAPID NAAT NEGATIVE (NEGATIVE)
[2025-01-14 10:09] LABS: TROPONIN I 0.019 ng/ml (0.0000-0.120)
[2025-01-14 10:12] LABS: CREATINE KINASE MB 2.53 ng/ml (0.0-2.38)
[2025-01-14] MEDS ORDERED: TYLENOL PO PRN (11:26)
[2025-01-14 11:40] LABS: ABG O2 HGB 94.3 % (95-100); ABG PH 7.38 (7.35-7.45); BEecf 8.6 (-2.0-3.0); COHb 2.5 (0.5-1.5); HCO3 33.7 (21-28); MetHb 1.1 (0-1.5); TCO2 35.4 (19-24); sO2 94.2 % (94-98); tHb 13.4 g/dl (11.7-17.4)
[2025-01-14] MEDS ORDERED: ALBUTEROL 0.083% NEB NEB PRN (12:20)
[2025-01-14] MEDS: ROCEPHIN 1 GM/50 ML D5W 1 GM/50 ML BAG IV SCH (13:00)
--- NOTE | 2025-01-14 13:11 | PCM ---
Date of Service Date Seen by Provider: 01/14/25 Time Seen by Provider: 12:30 Admit Day/Time Admission Date: 01/14/25 Admission Time: 11:18 Reason for Admission Chief Complaint: COPD EXACERBATION Hospital Provider Hospital Provider: ANGELA BURK, [facility] Primary Care Physician Primary Care Physician: CANDACE RENDON MD History of Present Illness History of Present Illness: 59 yo male from local SNF with pmh of COPD with oxygen dependence of 2L, HTN, and arthritis presented to the ER in respiratory distress. Patient had snoring respirations and was 79% on RA at the SNF. EMS placed on NRB and gave 20 mg of lasix. Breathing treatment was given on arrival to the ER and ABG obtained showing pH 7.28, pCO2 of 74. He was then placed on BIPAP and responded well. Chest xray was clear. Labs within normal limits. Repeat ABG showed improvement of CO2 at 57 following BIPAP use. Patient more alert and talkative on arrival to the med/surg floor. States he is feeling better at this time. Patient however did report he is only using his oxygen prn thus could be the cause of this incident. Patient was admitted here on 09/2024 and d/c with continuous O2 orders at 2LPM. Case Discussed With Case Discussed With: Patient's case was discussed with the ER Physicians, Dr. Momin. [facility] Medical History Arthritis M19.90 - Unspecified osteoarthritis, unspecified site (ICD-10) Hypertension I10 - Essential (primary) hypertension (ICD-10) COPD (chronic obstructive pulmonary disease) J44.9 - Chronic obstructive pulmonary disease, unspecified (ICD-10) Family History BROTHER , Throat Cancer COPD (chronic obstructive pulmonary disease) Cancer Mother Diabetes Stroke Social History Smoking and tobacco status: Former smoker Quit status: quit date established Second hand smoke exposure: No Smoking risk assessment performed: No Alcohol intake: current Alcohol intake frequency: a few times a month Counseling given: No Counseling provided: none Details: 1 pint a week Substance use type: marijuana Counseling given: No Counseling provided: none Marital status: S SINGLE Lives independently: Yes Number of children: 0 service: No Current occupational status: unemployed Pets and animals: No History of recent travel: No Sexually active: Yes Do you think of yourself as: straight/heterosexual Current gender identity: male Seatbelt use: always Helmet use: No Drives intoxicated or rides with intoxicated carry all driver: No Water heater temperature set < 120 degrees: Yes Working smoke detector in home: Yes Fire extinguisher in home: Yes Carbon monoxide detector in home: No Firearms in home: No Allergies Allergies Allergy/AdvReac Type Severity Reaction Status Date / Time No Known Allergies Allergy Verified 08/01/23 15:51 Current Medications Home Medications Acetaminophen (Acetaminophen 325 Mg Tablet) 650 mg PO Q4H PRN PRN Reason: Mild Pain Albuterol Sulfate (Albuterol Sulfate 0.083% Vial.Neb) 2.5 mg NEB RTQ4H PRN PRN Reason: Wheezing Albuterol/Ipratropium (Ipratropium/Albuterol Vial.Neb) 3 ml NEB RTQ4H MICHAEL Amlodipine Besylate (Amlodipine Besylate 5 Mg Tablet) 10 mg PO DAILY MICHAEL Artificial Tears (Polyvinyl Alcohol 15 Ml Opth Silvia) 1 drop EACHEYE DAILY MICHAEL Azithromycin (Azithromycin 250 Mg Tablet) 500 mg PO DAILY [facility] Stop: 01/16/25 12:59 Budesonide/Formoterol Fumarate (Budesonide/Formoterol Fumarate 160/4.5 Mcg Inhaler) 2 puff IH BID MICHAEL Guaifenesin (Guaifenesin 600 Mg Tablet.Er) 600 mg PO Q12HR MICHAEL Guaifenesin/Dextromethorphan (Guaifenesin/Dextromethorphan 200/20 Mg/10 Ml Cup) 10 ml PO Q6H PRN PRN Reason: Cough CEFTRIAXONE/D5W 1 GM PREMIX (Rocephin 1 Gm/50 Ml D5w) 1 gm in 50 mls @ 100 mls/hr IV DAILY MIHCAEL Stop: 01/17/25 11:59 Last Admin: 01/14/25 13:00 Dose: 100 mls/hr Methylprednisolone Sodium Succinate (Methylprednisolone Sod Succ/Pf 40 Mg/Ml Vial) 40 mg IVP Q8HR [facility] fluticasone 250 mcg-salmeterol 50 mcg/dose blistr powdr for inhalation (Wixela Inhub) 1 inh inhalation BID #60 ea 06/14/23 [Rx Confirmed 01/14/25] albuterol sulfate 2.5 mg/3 mL (0.083 %) solution for nebulization 2.5 mg (3 mL) inhalation Q4-6H PRN shortness of breath or wheezing #90 mL 09/28/24 [Rx Confirmed 01/14/25] amlodipine 10 mg tablet 10 mg PO DAILY #30 tabs 09/28/24 [Rx Confirmed 01/14/25] inhalational spacing device (Aerochamber MV spacer) #10 ea 09/28/24 [Rx Confirmed 01/14/25] nebulizer and compressor #1 ea 09/28/24 [Rx Confirmed 01/14/25] guaifenesin 600 mg tablet, extended release 12 hr (Mucinex) 600 mg PO Q12HR #10 tabs 10/06/24 [Rx Confirmed 01/14/25] potassium chloride 20 mEq tablet,extended release(part/cryst) 20 meq PO BIDWM2 #60 tabs 10/06/24 [Rx Confirmed 01/14/25] acetaminophen 325 mg capsule 650 mg PO BID 01/14/25 [History Confirmed 01/14/25] albuterol sulfate 90 mcg/actuation aerosol inhaler 2 puff inhalation Q4H PRN shortness of breath or wheezing 01/14/25 [History Confirmed 01/14/25] bisacodyl 10 mg rectal suppository 10 mg VT PRN PRN constipation 01/14/25 [History Confirmed 01/14/25] cholecalciferol (vitamin D3) 125 mcg (5,000 unit) tablet 5,000 unit PO WEEKLY 01/14/25 [History Confirmed 01/14/25] dextromethorphan-guaifenesin 10 mg-100 mg/5 mL oral syrup 10 ml PO Q6H PRN cough 01/14/25 [History Confirmed 01/14/25] magnesium hydroxide 400 mg/5 mL oral suspension (Milk of Magnesia) 30 ml PO PRN PRN constipation 01/14/25 [History Confirmed 01/14/25] peg [id number] 1 %-0.2 %-0.2 % eye drops (Artificial Tears ([id number])) 1 drp BOTHEYES DAILY 01/14/25 [History Confirmed 01/14/25] Opioid Naive vs. Tolerant Does Patient Take Opioids?: No Is Patient Opioid Naive?: Yes What is Opioid Naive?: *Opioid Naive implies the patient is not already taking opioids or not chronically receiving opioids on a daily basis. *PRN dosing is not "usually" associated with tolerance. *Patients are at higher risk of over-sedation and aspiration. Is Patient Opioid Tolerant?: No What is Opioid Tolerant?: *Opioid Tolerance implies less than the expected response to an opioid. *Acquired tolerance is defined by the patient taking 60mg of oral morphine daily (or equianalgesic dose of another opioid) for 1 week or more. *Often associated with chronic pain. *May take more than usual dose to achieve desired pain control. Review of Systems Constitutional: Reports No symptoms Head: Reports Normocephalic Eyes: Reports No symptoms Ears: Reports No symptoms Nose: Reports No symptoms Mouth: Reports No symptoms Throat: Reports No symptoms Cardiovascular: Reports No symptoms Respiratory: Reports Cough, Shortness of air and Wheeze Gastrointestinal: Reports No symptoms Genitourinary: Reports No Symptoms Musculoskeletal: Reports No symptoms Endocrine: Reports No symptoms Hematology: Reports No symptoms Immunology: Reports No symptoms Neurological: Reports No symptoms Psychiatric: Reports No symptoms Physical examination Most Recent Vital Signs: Most Recent Vital Signs Temperature 99.4 F 01/14/25 09:31 Temperature Source Temporal Artery Scan 01/14/25 09:31 Pulse Rate 122 H 01/14/25 09:31 Respiratory Rate 27 H 01/14/25 09:31 Blood Pressure 176/107 H 01/14/25 09:31 O2 Sat by Pulse Oximetry 97 01/14/25 12:27 Oxygen Delivery Method Nasal Cannula 01/14/25 12:27 Oxygen Flow Rate 4 01/14/25 12:27 Fraction of Inspired Oxygen (FIO2) 30 01/14/25 12:27 Height 5 ft 8 in 01/14/25 09:31 Weight 79.5 kg 01/14/25 09:31 Telemetry Heart Rate 82 10/06/24 07:00 Telemetry SPO2 94 10/06/24 07:00 Appearance: Positive No Apparent Distress and Alert and Oriented x3 Skin: Positive Warm and Good Turgor HEENT: Positive PERRLA Neck: Positive Supple and Midline Trachea Chest/Lungs: Positive Symmetrical With Equal Breath Sounds and Wheezes (expiratory throughout lung hernandez, diminished) Heart: Positive RRR and Pulses Normal; Negative Irregular Rhythm, Tachycardia or Bracycardia GI/: Positive Soft, Nontender, Bowel Sounds Normal and No Distention Musculoskeletal: Positive Not Examined Extremities: Positive Intact Peripheral Pulses, Stable Joints Without Laxity and Good ROM in All Joints Neurological: Positive Sensation Intact, Motor intact, Reflexes Intact, Alert, Oriented and Other (generalized weakness) Labs This Visit Labs This Visit: Labs This Visit 01/14/25 01/14/25 01/14/25 09:41 09:42 09:45 WBC 9.53 RBC 4.91 Hgb 13.8 L Hct 44.1 MCV 89.8 MCH 28.1 MCHC 31.3 L RDW Coeff of Laura 15.6 H Plt Count 250 Immature Gran % (Auto) 0.4 Neut % (Auto) 34.1 L Lymph % (Auto) 48.1 [place] % (Auto) 12.3 H Eos % (Auto) 4.4 Baso % (Auto) 0.7 Neut # (Auto) 3.3 Lymph # (Auto) 4.6 H [place] # (Auto) 1.2 Eos # (Auto) 0.4 Baso # (Auto) 0.1 Immature Gran # (Auto) 0.0 Puncture Site Rt rad Base Excess 8.1 H O2 Saturation 99.9 H ABG pH 7.28 L* ABG pCO2 74.0 H ABG pO2 270.0 H ABG HCO3 34.8 H ABG Total CO2 37.1 H Mamadou Test Pos Hemoglobin 1.4 Oxyhemoglobin 96.5 Carboxyhemoglobin 1.7 H Total Hemoglobin 14.2 O2 Delivery Device Non rebreather Oxygen Liter Flow 15.00 FiO2 % 100.0 Sodium 139.5 Potassium 4.41 Chloride 98.0 Carbon Dioxide 32.2 H Anion Gap 13.71 BUN 11.6 Creatinine 0.84 Estimated GFR (MDRD) 114.00 BUN/Creatinine Ratio 13.80 Glucose 128.4 H Lactic Acid 0.64 L Calcium 9.89 Magnesium 1.73 Total Bilirubin 0.63 AST 36.1 ALT 25.1 Alkaline Phosphatase 78.7 Total Creatine Kinase 173.0 H CK-MB (CK-2) 2.530 H CK-MB (CK-2) % 1.4600 Troponin I 0.019 NT-Pro-B Natriuret Pep 82 Total Protein 8.22 H Albumin 4.69 Globulin 3.53 Albumin/Globulin Ratio 1.32 D-Dimer 530.98 H Influ A Molecular Assay Negative by naat Influ B Molecular Assay Negative by naat SARS CoV-2 RNA Rapid CELENA Negative 01/14/25 11:36 WBC RBC Hgb Hct MCV MCH MCHC RDW Coeff of Laura Plt Count Immature Gran % (Auto) Neut % (Auto) Lymph % (Auto) [place] % (Auto) Eos % (Auto) Baso % (Auto) Neut # (Auto) Lymph # (Auto) [place] # (Auto) Eos # (Auto) Baso # (Auto) Immature Gran # (Auto) Puncture Site Rt rad Base Excess 8.6 H O2 Saturation 94.2 ABG pH 7.38 ABG pCO2 57.0 H ABG pO2 73.0 L ABG HCO3 33.7 H ABG Total CO2 35.4 H Mamadou Test Pos Hemoglobin 1.1 Oxyhemoglobin 94.3 L Carboxyhemoglobin 2.5 H Total Hemoglobin 13.4 O2 Delivery Device Bipap Oxygen Liter Flow FiO2 % 30.0 Sodium Potassium Chloride Carbon Dioxide Anion Gap BUN Creatinine Estimated GFR (MDRD) BUN/Creatinine Ratio Glucose Lactic Acid Calcium Magnesium Total Bilirubin AST ALT Alkaline Phosphatase Total Creatine Kinase CK-MB (CK-2) CK-MB (CK-2) % Troponin I NT-Pro-B Natriuret Pep Total Protein Albumin Globulin Albumin/Globulin Ratio D-Dimer Influ A Molecular Assay Influ B Molecular Assay SARS CoV-2 RNA Rapid CELENA Imaging Imaging: EXAM: CHEST RADIOGRAPH FINDINGS: The patient is leaning and rotated to the right. EKG leads project over the chest. No pulmonary infiltrate is identified. No pleural effusion or pneumothorax is seen. Heart size is normal. Tortuosity and ectasia of the thoracic aorta, again noted. No acute displaced rib fractures are identified. IMPRESSION: 1. No acute findings in the chest. Review Statement Review Statement: I have independently reviewed and interpreted the labs/EKGs/imaging that were ordered by the ER provider. I have reviewed all outside records that are available currently in our EMR including imaging/notes/labs from previous visits. Plan Plan: 1. Acute Hypoxic and Hypercapnic Respiratory Failure in setting of COPD Exacerbation - wean oxygen as tolerated, steroids, nebs 2. COPD Exacerbation - azith and rocephin, steroids, nebs, continue home medications 3. HTN - chronic, continue home medications DVT Prophylaxis: YOLY reynolds Time Spent: Greater than 80 minutes spent with patient, 50% of the time spent with this patient was devoted to counseling and coordination of care. [facility]annin minutes spent discussing advance care planning. Disposition: Admit to: Med/Surg Inpatient Discussed Plan of Care with Dr. Ivelisse Leon. Medications Medication Orders: Medications Ordered Category Date Time Status Acetaminophen [Tylenol] Meds 01/14/25 11:26 Active 650 mg PO Q4H PRN Albuterol Sulfate 0.083% Neb [Albuterol 0.083% Neb] Meds 01/14/25 12:20 Active 2.5 mg NEB RTQ4H PRN Amlodipine Besylate [Norvasc] Meds 01/15/25 09:00 Ordered 10 mg PO DAILY Azithromycin [Zithromax] Meds 01/14/25 13:00 Active 500 mg PO DAILY Ceftriaxone/D5w 1 gm Premix [Rocephin 1 gm/50 ml D5w] Meds 01/14/25 12:00 Active 1 gm in 50 ml IV DAILY Guaifenesin [Mucinex] Meds 01/14/25 21:00 Ordered 600 mg PO Q12HR Guaifenesin/Dextromethorphan [Robitussin Dm Syrup] Meds 01/14/25 13:08 Ordered 10 ml PO Q6H PRN Ipratropium/Albuterol Neb [Duoneb] Meds 01/14/25 14:00 Active 3 ml NEB RTQ4H Methylprednisolone Sod Succ/Pf [Solu-Medrol 40 mg] Meds 01/14/25 17:00 Active 40 mg IVP Q8HR fluticasone propion-salmeterol [Wixela Inhub] Meds 01/14/25 21:00 Ordered 1 inh IH BID peg [id number] [Artificial Tears(pg-hypm Meds 01/15/25 09:00 Ordered -glyc)] 1 drop OP DAILY
[2025-01-14] MEDS: ZITHROMAX PO SCH (13:44)
[2025-01-14] MEDS: DUONEB NEB SCH (14:09)
[2025-01-14 14:53] VITALS: BMI 26.8
[2025-01-14] MEDS: SOLU-MEDROL 40 MG IVP SCH (16:33)
[2025-01-14] MEDS: SYMBICORT 160-4.5 MCG INHALER IH SCH (20:21)
[2025-01-14] MEDS: MUCINEX PO SCH (20:21)
[2025-01-15 05:13] VITALS: BP 139/76; PULSE 87; TEMP 98.1
[2025-01-15 05:24] LABS: BASOPHILS % (AUTO) 0.2 % (0.0-3.0); HEMATOCRIT 37.7 % (42.0-52.0); HEMOGLOBIN 12.3 g/dl (14.0-18.0); IMMATURE GRANULOCYTE # (AUTO) 0.1 (0.0-1.0); IMMATURE GRANULOCYTE % (AUTO) 0.8 % (0.0-5.0); LYMPHOCYTES # (AUTO) 2.1 K/uL (0.60-3.4); LYMPHOCYTES % (AUTO) 12.5 (10.0-50.0); MEAN CORPUSCULAR HEMOGLOBIN 28.7 pg (27.0-31.0); MEAN CORPUSCULAR HGB CONC 32.6 (31.8-35.4); MEAN CORPUSCULAR VOLUME 87.9 fl (80.0-94.0); MONOCYTES # (AUTO) 1.1 K/uL (0.4-2.0); MONOCYTES % (AUTO) 6.4 (0-10); NEUTROPHILS # (AUTO) 13.3 K/ul (2.0-6.9); NEUTROPHILS % (AUTO) 80.1 % (42.2-75.2); PLATELET COUNT 247 10^3/uL (140-440); RDW COEFFICIENT OF VARIATION 15.5 % (11.6-14.8); RED BLOOD COUNT 4.29 10^6/ul (4.70-6.10); WHITE BLOOD COUNT 16.61 K/ul (4.2-10.2)
[2025-01-15 05:37] LABS: ALANINE AMINOTRANSFERASE 21.9 U/L (0-50); ALBUMIN 4.02 g/dL (3.5-5.0); ALKALINE PHOSPHATASE 64.7 U/L (38-126); ASPARTATE AMINO TRANSFERASE 26.5 U/L (17-59); BILIRUBIN,TOTAL 0.34 mg/dL (0.2-1.3); BLOOD UREA NITROGEN 19.1 mg/dL (9-20); CALCIUM 9.21 mg/dL (8.4-10.2); CARBON DIOXIDE 32.1 mmol/L (22-30.0); CHLORIDE 98.3 mmol/L (98-107); CREATININE 0.94 mg/dL (0.60-1.10); POTASSIUM 4.59 mmol/L (3.5-5.1); SODIUM 138.6 mmol/L (134.5-145); TOTAL PROTEIN 6.87 g/dL (6.3-8.2)
[2025-01-15] MEDS: ROBITUSSIN DM SYRUP PO PRN (08:15)
[2025-01-15] MEDS: NORVASC PO SCH (08:15)
[2025-01-15] MEDS: ARTIFICIAL TEARS OPTH SOL EACHEYE SCH (08:16)
[2025-01-15 08:55] VITALS: RESP 20
[2025-01-15] MEDS ORDERED: PEG HYPROMELLOSE GLYCERIN OP SCH (09:00)
[2025-01-15] MEDS: TOPROL XL PO SCH (09:23)
--- NOTE | 2025-01-15 10:59 | DCSUM ---
Admission Date Admission Date: 01/14/25 Discharge Date Discharge Date: 01/15/25 Admission Diagnosis Admission Diagnosis: 1. Acute Hypoxic and Hypercapnic Respiratory Failure in setting of COPD Exacerbation 2. COPD Exacerbation 3. HTN Discharge Diagnosis Discharge Diagnosis: 1. Acute Hypoxic and Hypercapnic Respiratory Failure in setting of COPD Exacerbation - Resolved 2. COPD Exacerbation - Improving 3. HTN - chronic, mildly uncontrolled, continue home medication and new toprol XL 4. Sinus Tachycardia - started on toprol XL 25 mg daily Hospital Provider Hospital [facility] Primary Care Physician Primary Care Physician: CANDACE RENDON MD Summary of History and Physical Summary of History and Physical: 59 yo male from local SNF with pmh of COPD with oxygen dependence of 2L, HTN, and arthritis presented to the ER in respiratory distress. Patient had snoring respirations and was 79% on RA at the SNF. EMS placed on NRB and gave 20 mg of lasix. Breathing treatment was given on arrival to the ER and ABG obtained showing pH 7.28, pCO2 of 74. He was then placed on BIPAP and responded well. Chest xray was clear. Labs within normal limits. Repeat ABG showed improvement of CO2 at 57 following BIPAP use. Patient more alert and talkative on arrival to the med/surg floor. States he is feeling better at this time. Patient however did report he is only using his oxygen prn thus could be the cause of this incident. Patient was admitted here on 09/2024 and d/c with continuous O2 orders at 2LPM. Hospital Course Subjective: During stay, patient was able to be weaned off of BIPAP. He was significantly wheezing initially on admission. Received steroids, nebs, rocephin, and azith to cover COPD exacerbation. Wheezing is resolved as of this am. Patient is down to previous home oxygen requirements of 2lpm. Patient was under the impression he could wear the oxygen as needed and did not need to wear it continuously. Discussed importance of continuous use and effects of COPD. Patient verbalized understanding and agreeable to wear oxygen at all times. Reports feeling much better today other than when he has a coughing spell. Of note, HR increased at one point to 120bpm. Running consistently SR 90s-110s on telemetry. Started on toprol XL 25 mg daily. HR returned to 80s following medication. Rx sent for azith, augmentin, medrol pack, and toprol xl. Leukocytosis noted on CBC this am. Not present on admission. Has received steroids for 24 hours. Likely due to steroid use. No fever present or source of infection. Appearance: Pleasant, No Apparent Distress and Alert HEENT: MMM, Supple and No JVD CVS: No Murmur Abdomen: Soft, Non-Tender and No Distention Respiratory: No Dyspnea Extremities: No Edema Vital Signs: Most Recent Vital Signs Temperature 98.1 F 01/15/25 05:12 Temperature Source Temporal Artery Scan 01/15/25 05:12 Temperature Source Temporal Artery Scan 01/14/25 09:31 Pulse Rate 87 01/15/25 05:12 Respiratory Rate 20 01/15/25 08:30 Blood Pressure 139/76 01/15/25 05:12 Blood Pressure Mean 97 01/15/25 05:12 Blood Pressure Left Arm 164/96 01/14/25 13:42 Blood Pressure Location Left Arm 01/15/25 05:12 Blood Pressure Position Supine 01/15/25 05:12 O2 Sat by Pulse Oximetry 97 01/15/25 09:49 Oxygen Delivery Method Nasal Cannula 01/15/25 09:49 Oxygen Flow Rate 2 01/15/25 09:49 Fraction of Inspired Oxygen (FIO2) 30 01/14/25 12:27 Height 5 ft 7 in 01/14/25 13:42 Weight 77.6 kg 01/14/25 13:42 Telemetry Type Remote Telemetry 01/15/25 01:00 Telemetry Monitoring Started 01/15/25 01:00 Telemetry Heart Rate 96 01/15/25 01:00 Telemetry SPO2 96 01/15/25 01:00 EKG HI Interval 0.18 01/15/25 01:00 EKG QRS Interval 0.08 01/15/25 01:00 Telemetry Strip Reading NSR 01/15/25 01:00 Pulse Oximetry Type Bedside Monitor 01/15/25 07:00 Pulse Oximetry Monitoring Continues 01/15/25 07:00 Imaging: EXAM: CHEST RADIOGRAPH FINDINGS: The patient is leaning and rotated to the right. EKG leads project over the chest. No pulmonary infiltrate is identified. No pleural effusion or pneumothorax is seen. Heart size is normal. Tortuosity and ectasia of the thoracic aorta, again noted. No acute displaced rib fractures are identified. IMPRESSION: 1. No acute findings in the chest. Lab Results Last 24 Hours: 01/15/25 01/14/25 05:06 11:36 WBC 16.61 H D RBC 4.29 L Hgb 12.3 L Hct 37.7 L D MCV 87.9 MCH 28.7 MCHC 32.6 RDW Coeff of Laura 15.5 H Plt Count 247 Immature Gran % (Auto) 0.8 Neut % (Auto) 80.1 H Lymph % (Auto) 12.5 [place] % (Auto) 6.4 Eos % (Auto) 0.0 Baso % (Auto) 0.2 Neut # (Auto) 13.3 H Lymph # (Auto) 2.1 [place] # (Auto) 1.1 Eos # (Auto) 0.0 Baso # (Auto) 0.0 Immature Gran # (Auto) 0.1 Puncture Site Rt rad Base Excess 8.6 H O2 Saturation 94.2 ABG pH 7.38 ABG pCO2 57.0 H ABG pO2 73.0 L ABG HCO3 33.7 H ABG Total CO2 35.4 H Mamadou Test Pos Hemoglobin 1.1 Oxyhemoglobin 94.3 L Carboxyhemoglobin 2.5 H Total Hemoglobin 13.4 O2 Delivery Device Bipap FiO2 % 30.0 Sodium 138.6 Potassium 4.59 Chloride 98.3 Carbon Dioxide 32.1 H Anion Gap 12.79 BUN 19.1 Creatinine 0.94 Estimated GFR (MDRD) 100.00 BUN/Creatinine Ratio 20.31 Glucose 156.0 H Calcium 9.21 Total Bilirubin 0.34 AST 26.5 ALT 21.9 Alkaline Phosphatase 64.7 Total Protein 6.87 Albumin 4.02 Globulin 2.85 Albumin/Globulin Ratio 1.41 Discharge Instructions Discharge Planning: Discharge Planning > 40 minutes If patient is discharged with left ventricular systolic dysfunction: no Discharged with a beta aydin? [] If no, why not? [] Discharged with an noemí/arb? [] If no, why not? [] Diagnosis: Acute Hypoxic & Hypercapnic Respiratory Failure, COPD Exacerbation, Oxygen noncompliance Diet: Cardiac Activity: as tolerated Medications: Augmentin - Start tomorrow Medrol pack - Start tomorrow Azithromycin - Start tomorrow Toprol XL 25 mg daily Discharge Medications: Medications at Discharge (Home Meds & RX) fluticasone 250 mcg-salmeterol 50 mcg/dose blistr powdr for inhalation (Wixela Inhub) 1 inh inhalation BID #60 ea 06/14/23 albuterol sulfate 2.5 mg/3 mL (0.083 %) solution for nebulization 2.5 mg (3 mL) inhalation Q4-6H PRN shortness of breath or wheezing #90 mL 09/28/24 amlodipine 10 mg tablet 10 mg PO DAILY #30 tabs 09/28/24 inhalational spacing device (Aerochamber MV spacer) #10 ea 09/28/24 nebulizer and compressor #1 ea 09/28/24 guaifenesin 600 mg tablet, extended release 12 hr (Mucinex) 600 mg PO Q12HR #10 tabs 10/06/24 potassium chloride 20 mEq tablet,extended release(part/cryst) 20 meq PO BIDWM2 #60 tabs 10/06/24 acetaminophen 325 mg capsule 650 mg PO BID 01/14/25 albuterol sulfate 90 mcg/actuation aerosol inhaler 2 puff inhalation Q4H PRN shortness of breath or wheezing 01/14/25 bisacodyl 10 mg rectal suppository 10 mg HI PRN PRN constipation 01/14/25 cholecalciferol (vitamin D3) 125 mcg (5,000 unit) tablet 5,000 unit PO WEEKLY 01/14/25 dextromethorphan-guaifenesin 10 mg-100 mg/5 mL oral syrup 10 ml PO Q6H PRN cough 01/14/25 magnesium hydroxide 400 mg/5 mL oral suspension (Milk of Magnesia) 30 ml PO PRN PRN constipation 01/14/25 peg [id number] 1 %-0.2 %-0.2 % eye drops (Artificial Tears ([id number])) 1 drp BOTHEYES DAILY 01/14/25 amoxicillin 875 mg-potassium clavulanate 125 mg tablet 1 tab PO BID #10 tabs 01/15/25 azithromycin 250 mg tablet 500 mg (2 x 250 mg) PO DAILY #1 tab 01/15/25 methylprednisolone 4 mg tablets in a dose pack (Medrol (Giovanni)) See Rx Instructions PO .COMPLEX #21 ea 01/15/25 metoprolol succinate 25 mg tablet,extended release 24 hr (Toprol XL) 25 mg PO DAILY #30 tabs 01/15/25 Discharge Plan Discharge Discharge Orders: Discharge Patient (ONCE); Ordered 01/15/25 Ordered By: AV MEDEROS Activity Restrictions/Additional Instructions: Diagnosis: Acute Hypoxic & Hypercapnic Respiratory Failure, COPD Exacerbation, Oxygen noncompliance Diet: Cardiac Activity: as tolerated Medications: Augmentin - Start tomorrow Medrol pack - Start tomorrow Azithromycin - Start tomorrow Toprol XL 25 mg daily Instructions: Using Oxygen at Home (GEN), COPD (Chronic Obstructive Pulmonary Disease) (IP) Care Plan Goals: Problem: Impaired Respiratory Status Goal: Exhibit optimal respiratory function Instructions: Activities as tolerated Apply oxygen as ordered Elevate head of bed Notify MD of increased congestion Patient Disposition: TRANSFER SNF Prescriptions: New azithromycin 250 mg Tablet 500 mg PO DAILY Qty: 1 0RF metoprolol succinate [Toprol XL] 25 mg Tablet Extended Release 24 Hr 25 mg PO DAILY Qty: 30 0RF amoxicillin-pot clavulanate 875-125 mg tablet 1 tab PO BID Qty: 10 0RF Rx Instructions: Start tomorrow methylprednisolone [Medrol (Giovanni)] 4 mg tablets,dose pack See Rx Instructions .ROUTE .COMPLEX Qty: 21 0RF Rx Instructions: orally per package directions Continued fluticasone propion-salmeterol [Wixela Inhub] 250-50 mcg/dose blister with device 1 inh inhalation BID Qty: 60 1RF potassium chloride 20 mEq Tablet,Er Particles/Crystals 20 meq PO BIDWM2 Qty: 60 0RF guaifenesin [Mucinex] 600 mg Tablet Extended Release 12hr 600 mg PO Q12HR Qty: 10 0RF albuterol sulfate 2.5 mg /3 mL (0.083 %) solution for nebulization 2.5 mg inhalation Q4-6H PRN (Reason: shortness of breath or wheezing) Qty: 90 0RF (DME) nebulizer and compressor Device See Rx Instructions .ROUTE Qty: 1 0RF Rx Instructions: As directed (DME) Aerochamber MV Spacer See Rx Instructions .ROUTE Qty: 10 0RF Rx Instructions: As directed amlodipine 10 mg tablet 10 mg PO DAILY Qty: 30 0RF albuterol sulfate 90 mcg/actuation HFA aerosol inhaler 2 puff inhalation Q4H PRN (Reason: shortness of breath or wheezing) bisacodyl 10 mg suppository 10 mg HI PRN PRN (Reason: constipation) magnesium hydroxide [Milk of Magnesia] 400 mg/5 mL suspension 30 ml PO PRN PRN (Reason: constipation) dextromethorphan-guaifenesin 10-100 mg/5 mL syrup 10 ml PO Q6H PRN (Reason: cough) acetaminophen 325 mg capsule 650 mg PO BID cholecalciferol (vitamin D3) 125 mcg (5,000 unit) tablet 5,000 unit PO WEEKLY Artificial Tears(ij-vwen-ryud) 1-0.2-0.2 % drops 1 drp BOTHEYES DAILY Did you review [place] VOICE AND DATA TECHNICIAN for ALL controlled substances?: No Discussed opioids are addictive and Narcan is available by prescription or from pharmacy.: No Condition: Good
[2025-01-15] MEDS ORDERED: ZITHROMAX 500 MG in SODIUM CHLORIDE 250 ML IV SCH (14:00)
== END 2025-01-15 13:06 | DRG 190 ==
LOC: ED 09:29 → MEDSURG B 11:51
PROVIDERS: ADMIT Hospitalist; ATTEND Nurse Practitioner Family
DX: J96.02 Acute respiratory failure with hypercapnia; Z79.899 Other long term (current) drug therapy; J96.01 Acute respiratory failure with hypoxia; Z99.81 Dependence on supplemental oxygen; Z51.81 Encounter for therapeutic drug level monitoring; J44.1 Chronic obstructive pulmonary disease with (acute) exacerbation; R00.0 Tachycardia, unspecified; Z87.891 Personal history of nicotine dependence; I10 Essential (primary) hypertension